=== PATIENT | female | born 1975 | race Caucasian/White ===

== ENCOUNTER 2019-07-14 06:45 | Outpatient (CLI) | payer BC, SELFPAY ==
--- NOTE | ~2019-07-14 | MR_ITS ---
EXAMINATION: MR brain/brain stem wo/w con EXAM DATE: 07/14/2019 09:33 INDICATION: Myelopathy. Neurological deficit. Hyperreflexia. Bilateral upper extremity weakness. TECHNIQUE: Magnetic resonance imaging (MRI) of the brain/brain stem obtained without contrast. Sagit connor T1, axial diffusion, gradient echo (T2*), T1, T2, FLAIR sequences obtained. Patient was then inj ected with 10 cc intravenous Multihance contrast. Axial and coronal postcontrast T1 weighted sequence s obtained. There is no prior study for comparison. FINDINGS: There are no areas of restricted diffusion to suggest acute infarction. There is no acute hemorrhage seen on the T2*, a hemosiderin sensitive sequence. No intraparenchymal brain mass. The ve ntricles are normal in size. There are no extra-axial collections. Flow voids are seen in the cereb ral arteries on the T2-weighted sequences consistent with their expected patency. The orbits are unr emarkable. Soft tissue is unremarkable. There are no areas of abnormal enhancement on the postcont rast images. IMPRESSION: 1. Normal brain MRI examination. Reviewed, dictated and finalized at location A. Y LEVEL SALES REPRESENTATIVE
--- NOTE | ~2019-07-14 | MR_ITS ---
EXAMINATION: MR cervical spine wo/w con EXAM DATE: 07/14/2019 09:33 INDICATION: Myelopathy, neurological deficit, weakness. Hyperreflexia. TECHNIQUE: Multi-sequential, multiplanar MR images of the cervical spine were obtained without contra st. Axial T2, axial T2 MERGE sequence. Sagittal T1, T2, T2 fat saturation images also obtained. Axi al T1 weighted sequence. Patient was then injected with 10 mL Multihance intravenous contrast and re imaged. Postcontrast axial and sagittal T1-weighted fat saturation sequences were obtained. There i s no prior study for comparison. FINDINGS: The vertebral bodies are aligned in the AP dimension. Vertebral body and disc heights are well-maintained. There are no suspicious marrow signal abnormalities. The spinal cord signal intensit y and intrinsic morphology is normal. Cervicomedullary junction is normal in appearance. There are no areas of abnormal enhancement on the post contrast images. Level by level evaluation: C2-C3: Disc does not extend beyond the endplate margin. Uncovertebral joint arthropathy: None. Facet joint arthropathy: Minimal bilateral. Neural foraminal stenosis: No stenosis. Central canal stenosis: No stenosis. C3-C4: Disc does not extend beyond the endplate margin. Uncovertebral joint arthropathy: None. Facet joint arthropathy: Minimal bilateral. Neural foraminal stenosis: No stenosis. Central canal stenosis: No stenosis. C4-C5: Disc does not extend beyond the endplate margin. Uncovertebral joint arthropathy: None. Facet joint arthropathy: Minimal bilateral. Neural foraminal stenosis: No stenosis. Central canal stenosis: No stenosis. C5-C6: Disc does not extend beyond the endplate margin. Uncovertebral joint arthropathy: None. Facet joint arthropathy: Minimal bilateral. Neural foraminal stenosis: No stenosis. Central canal stenosis: No stenosis. C6-C7: Disc does not extend beyond the endplate margin. Uncovertebral joint arthropathy: None. Facet joint arthropathy: None. Neural foraminal stenosis: No stenosis. Central canal stenosis: No stenosis. C7-T1: Disc does not extend beyond the endplate margin. Uncovertebral joint arthropathy: None. Facet joint arthropathy: Mild right, minimal left. Neural foraminal stenosis: No stenosis. Central canal stenosis: No stenosis. IMPRESSION: 1. Normal cervical spinal cord signal. 2. Minimal facet arthropathy. Reviewed, dictated and finalized at location A. CTOR OPERATING ROOM
--- NOTE | ~2019-07-14 | MR_ITS ---
EXAMINATION: MR thoracic spine wo/w con EXAM DATE: 07/14/2019 09:33 INDICATION: Myelopathy. Bilateral upper extremity weakness. Neurological deficit. Hyperreflexia. TECHNIQUE: Multi-sequential, multiplanar MR images of the thoracic spine were obtained without contra st. Sagittal T1, T2, T2 fat saturation, axial T2 weighted images reviewed. Axial T1 weighted sequenc e. Patient was then injected 10 mL Multihance intravenous contrast and reimaged. Postcontrast axial and sagittal T1-weighted fat saturation sequences were obtained. FINDINGS: The spinal cord signal intensity and intrinsic morphology is normal. The vertebral bodies a re aligned in the AP dimension. Vertebral body and disc heights are well-maintained. There are no katiana picious marrow signal abnormalities. Thoracic neural foramen and spinal canal widely patent. Paraspin al soft tissue is unremarkable. There are no areas of abnormal enhancement on the post contrast image s. IMPRESSION: Unremarkable MR thoracic spine exam. Reviewed, dictated and finalized at location A. IONARY EQUIPMENT MECHANIC
[2019-07-14 08:02] LABS: Blood Urea Nitrogen 34 mg/dL (8-26); Estimated Glomerular Filt Rate > 60
== END 2019-07-14 06:46 | disposition home or self-care (01) ==
PROVIDERS: PCP Family Medicine
DX: G95.9 Disease of spinal cord, unspecified (principal)
CPT/HCPCS: 70553; 72156; 72157; A9577

== ENCOUNTER 2019-10-05 10:22 | Outpatient (CLI) | payer BC, SELFPAY ==
--- NOTE | ~2019-10-05 | XR_ITS ---
EXAMINATION: XR hip RT min 3V w AP pelvis INDICATION: Right hip pain TECHNIQUE: AP view the pelvis and three views of the right hip are obtained. COMPARISON: 06/04/2019 FINDINGS: Mild right hip osteoarthritis is unchanged. Bone alignment is normal. There is no fracture. Phleboliths are noted in the pelvis. IMPRESSION: 1. No acute osseous abnormality. Reviewed, dictated and finalized at location A.
== END 2019-10-05 10:23 | disposition home or self-care (01) ==
LOC: ANHIMG 10:29
PROVIDERS: PCP Family Medicine; Visit Provider Nurse Practitioner Family
DX: M25.551 Pain in right hip (principal); M25.451 Effusion, right hip
CPT/HCPCS: 73502

== ENCOUNTER 2020-06-07 15:22 | Outpatient (CLI) | payer BC, SELFPAY ==
--- NOTE | ~2020-06-07 | US_ITS ---
EXAMINATION: US soft tissue abdomen DATE: 06/07/2020 16:08 INDICATION: Right lower quadrant abdominal pain TECHNIQUE: Multiple grayscale and Doppler ultrasound images of the abdomen were obtained. COMPARISON: None FINDINGS: Shadowing gas and stool in the cecum. There are multiple peristalsing loops of nondilated small bowel the region of the cecum. A definitive blind ending appendix was unable to be identified. The patient was exquisitely tender to palpation with a probe positioned over the tip of the cecum. IMPRESSION: 1. Appendix and it would be definitively identified however patient was extremely tender in the regio n of the tip of the cecum which does remain concerning for acute appendicitis. Could consider contras t-enhanced CT for more definitive determination. Dr. Barbosa discussed these findings with Viviana Maki at 4:05 PM. Reviewed, dictated and finalized at location A. CONDENSER IMPRESSION: 1. Appendix and it would be definitively identified however patient was extreme ly tender in the region of the tip of the cecum which does remain concerning fo r acute appendicitis. Could consider contrast-enhanced CT for more definitive d etermination. Dr. Barbosa discussed these findings with Viviana SHIN at 4:05 PM.
--- NOTE | ~2020-06-07 | XR_ITS ---
EXAMINATION: XR hip RT min 3V w AP pelvis DATE: 06/07/2020 16:16 INDICATION: Right hip pain. TECHNIQUE: An anteroposterior view of the pelvis and 3 views of right hip were obtained. COMPARISON: Pelvis and right hip radiographs 10/05/2019 FINDINGS: Bone alignment is normal. No fracture. The joint spaces are normal. A vascular stent overli es right pelvis. IMPRESSION: 1. No etiology for right hip pain. Reviewed, dictated and finalized at location A. IATIVE CARE NURSE
[2020-06-07 16:44] LABS: Basophils Percent Auto 0.5 % (0.2-1.2); Eosinophils Absolute Auto 0.1 K/mm3 (0-0.3); Eosinophils Percent Auto 0.9 % (0-4.4); Hematocrit 40.8 % (37.0-47.0); Hemoglobin 13.8 g/dL (12.0-15.0); Immature Granulocyte Absolute 0.02 K/mm3 (0.00-0.031); Immature Granulocyte Percent A 0.3 % (0-0.5); Lymphocytes Absolute Auto 1.32 K/mm3 (0.9-3.2); Lymphocytes Percent Auto 22.5 % (18.3-44.2); Mean Corpuscular HGB Conc 33.8 g/dl (32-36); Mean Corpuscular Hemoglobin 29.9 pg (26-34); Mean Corpuscular Volume 88.5 fl (80-100); Mean Platelet Volume 10.3 fl (7.4-10.4); Monocytes Absolute Auto 0.4 K/mm3 (0.1-0.6); Monocytes Percent Auto 6.1 % (2.6-8.5); Neutrophils Absolute Auto 4.1 K/mm3 (1.3-6.7); Neutrophils Percent Auto 69.7 % (45.5-73.1); Platelet Count Result 225 k/mm3 (150-375); Red Blood Count 4.61 M/mm3 (4.2-5.4); Red Cell Distribution Width 12.3 % (11.5-14.5); White Blood Count 5.9 K/mm3 (4.5-10.0)
[2020-06-07 16:57] LABS: Alanine Aminotransferase 29 U/L (4-35); Albumin Level 4.4 g/dL (3.5-5.1); Alkaline Phosphatase 48 U/L (38-126); Anion Gap 7 mmol/L (8-16); Aspartate Amino Transferase 34 U/L (14-36); Bilirubin,Total 0.7 mg/dL (0.2-1.3); Blood Urea Nitrogen 20 mg/dL (7-17); Calcium 9.2 mg/dL (8.4-10.2); Carbon Dioxide 26 mmol/L (22-30); Chloride 103 mmol/L (98-107); Estimated Glomerular Filt Rate > 60; Glucose 89 mg/dL (65-105); Potassium 3.5 mmol/L (3.4-5.0); Sodium 136 mmol/L (137-145)
== END 2020-06-07 15:23 | disposition home or self-care (01) ==
PROVIDERS: PCP Family Medicine; Visit Provider Physician Assistant Medical
DX: R10.31 Right lower quadrant pain (principal); M25.551 Pain in right hip
CPT/HCPCS: 36415; 73502; 76705; 80053; 85025

== ENCOUNTER 2020-06-08 11:03 | Emergency (ER) | payer BC, SELFPAY ==
--- NOTE | ~2020-06-08 | US_ITS ---
EXAMINATION: US pelvic complete w TV EXAM DATE: 06/08/2020 13:39 INDICATION: Right lower quadrant pain, concern for ovarian torsion. TECHNIQUE: Pelvic transabdominal and transvaginal sonogram was performed. There are multiple graysca le and Doppler images available for interpretation. Comparison is made to prior examination from 2018. FINDINGS: The vaginal cuff is unremarkable. Small free pelvic fluid in the cul-de-sac. Right adnexa: The ovary measures 2.9 x 2.7 x 1.9 cm and is morphologically normal. Ovarian vascular f low confirmed. Left adnexa: The ovary is not identified. There is no adnexal mass. IMPRESSION: Sonographically normal right ovary. Reviewed, dictated and finalized at location B. NING AND DEVELOPMENT INTERN
--- NOTE | ~2020-06-08 | CT_ITS ---
EXAMINATION: CT abdomen pelvis w con DATE: 06/08/2020 12:50 INDICATION: Right lower quadrant abdominal pain. Nausea. TECHNIQUE: Computed tomography (CT) of the abdomen and pelvis was performed with 100 mL Omnipaque 350 intravenous contrast. Automated exposure control and iterative reconstruction technique were employe d. The dose-length product was 201.04 mGy-cm. COMPARISON: CT abdomen and pelvis 11/18/2018 FINDINGS: The visualized portions of the lung bases demonstrate mild atelectasis. No pleural effusion . The heart size is normal. No pericardial effusion. Pectus excavatum is noted. The liver is normal. There are changes of cholecystectomy. The pancreas, adrenal glands, and spleen are normal. There are cysts in the kidneys measuring up to 4 mm on the right. There is a stent in right common and external iliac veins. There are no dilated loops of bowel. The appendix is not visualized. There are no patho logically enlarged lymph nodes. There is trace pelvic ascites. There is an old healed fracture of lef t inferior pubic ramus. IMPRESSION: 1. No etiology for the patient's symptoms. Reviewed, dictated and finalized at location A. ROENTEROLOGY PROFESSOR
[2020-06-08 11:12] VITALS: BP 117/75; PULSE 90; RESP 16; TEMP 36.7; O2SAT 100
--- NOTE | 2020-06-08 11:18 | PC.NURSE ---
pt has had hyst. no preg test indicated
[2020-06-08 11:23] LABS: Basophils Percent Auto 0.3 % (0.2-1.2); Eosinophils Percent Auto 0.2 % (0-4.4); Hematocrit 38.4 % (37.0-47.0); Immature Granulocyte Absolute 0.03 K/mm3 (0.00-0.031); Immature Granulocyte Percent A 0.5 % (0-0.5); Lymphocytes Absolute Auto 1.15 K/mm3 (0.9-3.2); Lymphocytes Percent Auto 18.5 % (18.3-44.2); Mean Corpuscular HGB Conc 33.9 g/dl (32-36); Mean Corpuscular Hemoglobin 29.6 pg (26-34); Mean Corpuscular Volume 87.5 fl (80-100); Mean Platelet Volume 10.3 fl (7.4-10.4); Monocytes Absolute Auto 0.4 K/mm3 (0.1-0.6); Monocytes Percent Auto 6.8 % (2.6-8.5); Neutrophils Absolute Auto 4.6 K/mm3 (1.3-6.7); Neutrophils Percent Auto 73.7 % (45.5-73.1); Platelet Count Result 225 k/mm3 (150-375); Red Blood Count 4.39 M/mm3 (4.2-5.4); Red Cell Distribution Width 12.5 % (11.5-14.5); White Blood Count 6.2 K/mm3 (4.5-10.0)
[2020-06-08 11:35] LABS: Alanine Aminotransferase 36 U/L (4-35); Albumin Level 4.5 g/dL (3.5-5.1); Alkaline Phosphatase 54 U/L (38-126); Anion Gap 6 mmol/L (8-16); Aspartate Amino Transferase 40 U/L (14-36); Bilirubin,Total 0.7 mg/dL (0.2-1.3); Blood Urea Nitrogen 27 mg/dL (7-17); Calcium 9.1 mg/dL (8.4-10.2); Carbon Dioxide 24 mmol/L (22-30); Chloride 106 mmol/L (98-107); Estimated CRCL calculation 68 ml/min; Estimated Glomerular Filt Rate > 60; Glucose 99 mg/dL (65-105); Lipase 74 U/L (23-300); Potassium 3.7 mmol/L (3.4-5.0); Sodium 136 mmol/L (137-145)
--- NOTE | 2020-06-08 12:14 | ED.GENADULT ---
HPI - General Adult General Chief complaint: Abdominal Pain Stated complaint: RLQ and flank pain Time Seen by Provider: 06/08/20 12:08 Source: RN notes reviewed History of Present Illness HPI narrative: Patient presents to emergency department from home for abdominal pain. Patient states she been having pain in the right lower quadrant that radiates into the right flank for the past 3 days described as sharp and stabbing. Associated with nausea. Patient denies any fevers or chills chest pain shortness of breath vomiting diarrhea or any other symptoms. States she took no pain medication today for the symptoms. Denies any previous history of kidney stones Related Data Home Medications Medication Instructions Recorded Confirmed denosumab 60 mg/mL subcutaneous 60 mg SUB-Q [id number] 05/12/19 03/04/20 syringe Allergies Allergy/AdvReac Type Severity Reaction Status Date / Time lidocaine Allergy Unknown Nausea and Verified 06/08/20 11:16 Vomiting codeine AdvReac Unknown NAUSEA/VOMI Verified 06/08/20 11:16 TING Review of Systems Review of Systems: Narrative: Gen.: Denies fevers or chills ENT: Denies congestion Respiratory: Denies shortness of breath or cough CV: Denies chest pain or palpitations GI: See HPI denies burning, urgency, frequency or hematuria Musculoskeletal: Denies back pain or muscle pain Neuro: Denies numbness, tingling, weakness or focal weakness Skin: Denies rash Except as documented, all other systems reviewed and negative COUNTS INCLUDE 234 BEDS AT THE [facility] Past Medical History Medical History (Updated 06/08/20 @ 14:10 by Ravi Dean DO) Malignant neoplasm of unspecified site of right female breast Seronegative rheumatoid arthritis of multiple sites Weight loss Family History Family History Father Hypertension Other Family history of malignant neoplasm Social History Social History Smoking status: Never smoker Second hand tobacco smoke exposure: No Alcohol intake: current Gender identity (if verbalized by the patient): Female Exam Narrative: Exam Narrative: APPEARANCE: No acute distress, nontoxic, resting in bed HEENT: Normocephalic, atraumatic, OMM RESPIRATORY: No respiratory distress, clear to auscultation bilaterally with no rhonchi wheezing or rales CARDIOVASCULAR: RRR s murmur ABDOMINAL: Soft, nondistended, tender palpation right lower quadrant no tenderness in right upper quadrant, left upper quadrant left lower quadrant no rebound or guarding MUSCULOSKELETAl: Moves all extremities. No clubbing, cyanosis or edema. NEURO: Awake and alert. Following commands, speech normal, no focal deficits SKIN:: Warm, dry. Normal Color PSYCHIATRIC: Normal affect/mood Course Course Emergency Course: Patient states that they are feeling much better at this time. States abdominal pain has improved. Repeat abdominal exam shows the patient's abdomen to be soft and nontender. Discussed with patient results of workup and diagnosis. Discussed need for follow-up with primary care physician, reasons to return to the emergency department in proper use of medication. Patient understands and agrees to current treatment plan Vital Signs Vital signs: Vital Signs Temperature 98.1 F 06/08/20 11:12 Pulse Rate 90 06/08/20 11:12 Respiratory Rate 16 06/08/20 11:12 Blood Pressure 117/75 06/08/20 11:12 Pulse Oximetry 100 06/08/20 11:12 Temperature 98.1 F 06/08/20 11:12 Pulse Rate 90 06/08/20 11:12 Respiratory Rate 16 06/08/20 11:12 Blood Pressure 117/75 06/08/20 11:12 Pulse Oximetry 100 06/08/20 11:12 Medical Decision Making MDM Narrative Medical decision making narrative: Patient's abdomen is soft without significant pain or signs of surgical abdomen on serial exams. Lab and x-ray evaluations are reviewed and patient is felt to be a reasonable candidate for outpatient manag
[2020-06-08 12:21] LABS: Add Urine Microscopic? YES; Appearance Urine Clear (Clear); Bilirubin Urine Negative (Negative); Blood Urine Negative (Negative); Color Urine Yellow (Yellow); Glucose Urine UA Negative (Negative); Ketones Urine 1+ mg/dL (Negative); Leukocyte Esterase Ur Negative LEU/UL (Negative); Mucus Urine Rare /lpf; Nitrate Urine Negative (Negative); Protein Urine Negative (Negative); RBC Urine 0-2 /hpf (0-2); Specific Grav Ur 1.025 (1.001-1.035); Squamous Epithelial Cell Urine Few /hpf (Few); Urobilinogen Urine Negative mg/dL (<2.0); WBC Urine 0-3 /hpf
[2020-06-08] MEDS: KETOROLAC 30 MG/ML VIAL (*BKC) IV PUSH (12:33)
[2020-06-08] MEDS: SODIUM CHLORIDE 0.9% IV 1,000 ML 999 ML IV CONT (12:33)
[2020-06-08] MEDS: ONDANSETRON INJ 4 MG/2 ML VIAL IV PUSH (12:33)
[2020-06-08 14:36] VITALS: BP 146/84; PULSE 86; RESP 16; O2SAT 98
== END 2020-06-08 14:37 | disposition home or self-care (01) ==
PROVIDERS: Emergency Provider Emergency Medicine; PCP Family Medicine
DX: R10.31 Right lower quadrant pain (principal); M06.09 Rheumatoid arthritis without rheumatoid factor, multiple sites; Z85.3 Personal history of malignant neoplasm of breast
CPT/HCPCS: 36415; 74177; 76830; 76856; 80053; 81001; 83690; 85025; 96361; 96374; 96375; 99284; J1885; J2405; J7030; Q9967

== ENCOUNTER 2020-07-18 12:43 | Outpatient (CLI) | payer BC, SELFPAY ==
--- NOTE | ~2020-07-18 | XR_ITS ---
EXAMINATION: XR lg joint inject/asp w image DATE: 07/18/2020 13:23 INDICATION: Right hip pain TECHNIQUE: A time-out was performed to verify the patient's name, date of , and procedure to b e performed. The procedure including the risks, benefits, and alternatives was discussed with the pat ient. Risks discussed included bleeding and infection. The patient understood the risks and agreed to proceed. The skin overlying the right hip joint was prepped and draped in usual sterile fashion. A nesthetic was administered with 1% lidocaine subcutaneously. A 22 G needle was advanced under fluoro scopic guidance into the joint. Injection of 0.8 mL of Omnipaque 240 confirmed intra-articular posit ion of the needle. Subsequently, injectate consisting of 7 mm of a 5:1 mixture of 1% lidocaine, 10 m g/mL Kenalog for a total dose of 20 mg Kenalog was instilled. Washout of contrast was seen confirming intra-articular administration. The needle was removed and the entry site was cleaned and dressed. There were no immediate complications. Fluoroscopy exposure time was 0.1 minutes. The total number of images was 2. FINDINGS: Real-time fluoroscopy demonstrates the needle in the right hip joint. Patient's pain prior to procedure:6/10. Patient's pain following the procedure: 3/10. IMPRESSION: 1. Right hip joint injection of local anesthetic and steroid with decrease in the patient's presentin g pain. Reviewed, dictated and finalized at location A. ING PLANT SUPERVISOR IMPRESSION: 1. Right hip joint injection of local anesthetic and steroid with decrease in t he patient's presenting pain.
== END 2020-07-18 12:44 | disposition home or self-care (01) ==
LOC: ANHIMG 12:44
PROVIDERS: PCP Family Medicine; Visit Provider Orthopaedic Surgery
DX: M16.11 Unilateral primary osteoarthritis, right hip (principal)
CPT/HCPCS: 20610; 77002; J3301; Q9966

== ENCOUNTER → 2021-07-08 00:04 | Outpatient (CLI) | payer BC, MEDICARE, SELFPAY ==
[2021-07-08 12:36] LABS: SARS-CoV-2 RNA PCR Negative
== END ==
PROVIDERS: PCP Family Medicine; Visit Provider Plastic Surgery
DX: Z01.812 Encounter for preprocedural laboratory examination (principal); Z20.822 Contact with and (suspected) exposure to COVID-19
CPT/HCPCS: C9803; U0003; U0005

== ENCOUNTER 2021-07-12 02:38 | Day surgery (SDC) | payer BC, MEDICARE, SELFPAY ==
[2021-07-03 15:27] VITALS: BMI 20.7
--- NOTE | 2021-07-03 15:39 | PC.NURSE ---
Report to the Outpatient Waiting Room, entrance under the green pavilion located off [facility], at time 0745 on date 07/12/21. OR Time: 0945. - You will be asked a series of questions to screen for COVID 19 for your protection. - A mask is required within the hospital. - No visitors are allowed at this time. Preoperative COVID Testing Requirements: COVID TEST 07/08 AT 0920 No COVID Test needed if: (proof is required; if not received patient will have Rapid Test prior to entry) - Patient has received COVID Vaccine at least 14 days prior to procedure date or - Patient has positive COVID test result within last 90 days of surgery date. COVID Test needed if above criteria is not met If not COVID vaccinated a COVID test must be conducted within 72 hours of surgery and patient is asked to isolate self from time of testing until procedure. You will go to the [facility] for your COVID testing. The [facility] is located at the corner of [address] [facility]. You will only be called if COVID results are positive and your surgeon may reschedule your elective surgery date. Patients may have clear liquids (water, carbonated beverages, clear teas, apple juice) until 3 hours prior to surgery with a maximum of 20 ounces. - No food from midnight until time of surgery Take the following medications with a SIP of water the morning of surgery: NONE Medications to discontinue per physician: PLAQUENIL, METHOTREXATE, FOLIC ACID Date to take last dose: 07/07/21 (PER DR. CHURCH) Please no make-up, nail czech, hairspray, perfume, deodorant, or body powder the day of surgery. No jewelry (including any body piercings) or valuables the day of surgery, leave them at home. Please take a shower or bath the night before, or the morning of, surgery with an antibacterial soap. Wear comfortable, loose fitting clothing. - Jewelry must be removed prior to entering the operating room. Rings and piercings that are not removed may be cut off. - The hospital will not accept responsibility for valuables. - Please leave all valuables, including medications, at home the day of surgery. If you are going home after surgery, a licensed delivery driver/supervisor must drive you home. - NO public transportation without another adult. - We recommend that an adult stay with you for 24 hours following discharge. - We also recommend that you do not drive, make important decision, drink alcoholic beverages, or take any drugs that were not prescribed by your health care provider for at least 24 hours after your discharge time. Follow any additional instructions given to you from your surgeon. Telephone instructions given to EMMA FARAH and asked if any additional questions and then verbalized understanding. Patient advised to call surgeon office or pre surgery nurse liaison [phone] if any additional questions.
--- NOTE | 2021-07-12 07:12 | WPDHPUPDATE1 ---
History and Physical Update Update Date/Time: 07/12/21 07:12 History and Physical has been reviewed, including an updated exam of the patient. There are NO changes in the patient's condition. Risks, benefits, and alternatives have been discussed and questions answered. Patient agrees to proceed with procedure.
[2021-07-12] MEDS: LACTATED RINGERS 1,000 ML 30 ML IV CONT (08:00)
--- NOTE | 2021-07-12 08:18 | P.PNAN_ITS ---
Anes - Initial Pre Proc Eval Procedure: Operation Date: 07/12/21 09:00 Proposed Procedures p Right Carpal Tunnel Release, Right Ulnar Neuroplasty at Elbow - Ravi Bella MD Date/Time: 07/12/21 08:18 Surgeon: Ravi Bella MD Pre Op Diagnosis: right carpal and cubital tunnel syndrome Patient Data Age: 46 Gender: F Height: 1.59 m Weight: 52.16 kg Allergies Allergy/AdvReac Type Severity Reaction Status Date / Time codeine AdvReac Unknown NAUSEA/VOMI Verified 07/03/21 15:25 TING Home Medications Medication Instructions Recorded Confirmed Type denosumab 60 mg/mL subcutaneous 60 mg SUB-Q [id number] 05/12/19 07/03/21 History syringe folic acid 1 mg tablet 1 mg PO DAILY #90 tablet 11/17/19 07/03/21 Rx hydroxychloroquine 200 mg tablet 200 mg PO BID #60 tablet 11/17/19 07/03/21 Rx methotrexate sodium 2.5 mg tablet 25 mg PO WEEKLY #40 tablet 11/17/19 07/03/21 Rx cyclobenzaprine 5 mg tablet 5 mg PO QHS PRN #20 tablet 05/02/21 07/03/21 Rx Patient hx anesthesia problems: none Family hx anesthesia problems: none Results Review: All pre-operative results and documents have been reviewed as part of the pre-operative evaluation. [facility] Past Medical History Medical History (Updated 07/12/21 @ 08:20 by Marcel Roach MD) Malignant neoplasm of unspecified site of right female breast Seronegative rheumatoid arthritis of multiple sites SLE (systemic lupus erythematosus related syndrome) Weight loss Surgical History Surgical History H/O breast surgery H/O knee surgery History of cholecystectomy Family History Family History Father Hypertension Other Family history of malignant neoplasm Social History Social History Smoking status: Never smoker Second hand tobacco smoke exposure: No Alcohol intake: current Alcohol use details: VERY RARE Substance use: never Substance use type: does not use Living arrangements: with family Gender identity (if verbalized by the patient): Female Spiritual care concerns: No Anes - Eval Final PreProcedure Day of Procedure 07/12/21 08:18 Patient weight: normal Heart: regular rate and rhythm Lungs: clear to auscultation and normal air movement Airway: Mallampati scale class II Neurological: alert and oriented Last oral intake: >/= 8 hours ASA classification: III Emergent: no Anesthetic plan: proceed Anesthesia type and monitoring: general GIVS Results Review: All pre-operative results and documents have been reviewed as part of the pre-operative evaluation. Informed Consent: The patient's anesthetic plan and its attendant risks and benefits were discussed with the patient/family/POA. Questions were solicited and answers provided to the satisfaction of the patient/family/POA.
[2021-07-12 08:45] VITALS: BP 115/80; PULSE 78; RESP 16; TEMP 36.4; O2SAT 100
[2021-07-12] MEDS: LIDO 1%/EPINEPHRINE/PF 1:200,000 30 ML VIAL XX (10:02)
[2021-07-12] MEDS: BACITRACIN OINTMENT 15 GM TUBE 1 APPLIC TOPICAL (10:16)
[2021-07-12 10:25] VITALS: BP 98/61; PULSE 73; RESP 14; O2SAT 95
[2021-07-12 11:00] VITALS: BP 111/76
[2021-07-12 11:10] VITALS: BP 113/76; PULSE 75; RESP 16
--- NOTE | 2021-07-12 11:43 | W.PM.PROC2 ---
Procedure Note - Detailed Date of Procedure 07/12/21 Pre-op Diagnosis right carpal and cubital tunnel syndrome Post-op Diagnosis same Procedure Performed Right open carpal tunnel release. Right ulnar neuroplasty with subcutaneous anterior transposition of the ulnar nerve. Surgeon Ravi Bella MD [facility] Anesthesia MAC Description of Procedure The right carpal tunnel on the right ulnar nerve at the elbow or were marked on the patient with her cooperation. She is in the holding area. She was taken to the operating room where she was placed supine on the operating table then. The time-out was held and confirmed. She was given IV sedation and the right upper extremity was prepped and draped in usual fashion. The surgical sites were marked for incisions and locally infiltrated with 1% lidocaine with epinephrine. The extremity was exsanguinated with a Grupo wrap and tourniquet inflated to 250 mmHg. The surgery was begun and a hand with a incision in the palm as marked and blunt dissection through the subcutaneous tissue to the palmar aponeurosis. This and the transverse retinaculum were incised with a 15 blade. Under 3 point retraction the retinaculum was incised proximally and distally for complete release of the carpal canal. No unusual anatomy was noted. The skin was closed with interrupted 5 0 nylon suture. Attention was turned to the elbow which was flexed and supported on folded towels. Incision was made at that site and dissection carried through subcutaneous tissue to the medial epicondyle. We noted the nerve to be riding up on the medial epicondyle and anterior to its normal track. The medial intermuscular septum was incised and the fascial tissue over the nerve was divided distally passing Cruz ligament into the muscle fascia. A the nerve did not return to its normal position. I wrote upon the medial epicondyle with passive flexion extension of the elbow. We elected to further transpose the medial to the epicondyle and retained in that position. The nerve was freed throughout this 5 cm area. Vascular tissue was left attached to that. The skin flap was elevated further providing a pocket to receive the nerve. The small fascial flap was taken off the medial epicondyle fixed to the superficial fascia of the skin flap. This was done with 3-0 Monocryl sutures. Additional bleeding points were sought and cauterized. The skin was closed with interrupted and running intradermal 3-0 Monocryl sutures. The tourniquet was released and the usual bandages were applied to both surgical sites. Patient is discharged home with instructions in wound care and follow-up and has a prescription for hydrocodone 5/325 number 8 full, and cephalexin 500 mg 1 p.o. t.i.d. 15. Estimated Blood Loss -5.0 Drains No Packing No Pathology none sent Complications No immediate complications Condition stable Disposition same day
== END 2021-07-12 11:35 | disposition home or self-care (01) ==
PROVIDERS: PCP Family Medicine; Visit Provider Plastic Surgery
PROC: (CPT 64721; principal; 2021-07-12 09:00)
DX: G56.01 Carpal tunnel syndrome, right upper limb (principal); G56.21 Lesion of ulnar nerve, right upper limb; M32.9 Systemic lupus erythematosus, unspecified; M06.09 Rheumatoid arthritis without rheumatoid factor, multiple sites; Z85.3 Personal history of malignant neoplasm of breast
CPT/HCPCS: 64721; 64718; A9270; J1100; J2250; J2405; J2704; J3010; J7120

== ENCOUNTER → 2021-09-11 13:44 | Outpatient (REF) | payer BC, MEDICARE, SELFPAY | LOC: ANHLAB 13:44 | PROVIDERS: PCP Family Medicine; Visit Provider Nurse Practitioner | DX: L72.9 Follicular cyst of the skin and subcutaneous tissue, unspecified (principal) | CPT/HCPCS: 88304 ==

== ENCOUNTER → 2021-10-09 10:49 | Outpatient (CLI) | payer BC, MEDICARE, SELFPAY ==
--- NOTE | ~2021-10-09 | MR_ITS ---
EXAMINATION: MR pelvis wo/w con DATE: 10/09/2021 11:56 INDICATION: Urinary incontinence. Sensation of pressure and internal slippage. TECHNIQUE: Magnetic resonance imaging (MRI) of the pelvis was performed without and with 10 mL MultiH ance intravenous contrast. COMPARISON: CT abdomen and pelvis 06/08/2020 FINDINGS: There are no dilated loops of bowel. There are changes of hysterectomy. The ovaries are normal. There is physiologic fluid in the pelvis. There is pelvic floor dysfunction including vaginal prolapse and rectal descent. IMPRESSION: 1. Pelvic floor dysfunction including vaginal prolapse and rectal descent. Note that dynamic pelvic floor imaging was not performed. Reviewed, dictated and finalized at location B.
[2021-10-09 11:14] LABS: Estimated Glomerular Filt Rate > 60
== END ==
PROVIDERS: PCP Family Medicine; Visit Provider Nurse Practitioner Family
DX: N39.3 Stress incontinence (female) (male) (principal); R10.2 Pelvic and perineal pain
CPT/HCPCS: 72197; A9577

== ENCOUNTER 2022-01-15 12:22 | Emergency (ER) | payer BC, MEDICARE, SELFPAY ==
--- NOTE | ~2022-01-15 | CT_ITS ---
EXAMINATION: CT abdomen pelvis wo con DATE: 01/15/2022 14:19 INDICATION: Fever and flank pain TECHNIQUE: Computed tomography (CT) of the abdomen and pelvis was performed without intravenous contr ast. The dose-length product (DLP) was 183.66 mGy-cm. Automated exposure control and iterative recons truction technique were employed. COMPARISON: 06/08/2020 FINDINGS: Minimal dependent atelectasis is present in the lung bases. The heart size is normal. The g allbladder is surgically absent. Within the limitations of noncontrast examination, the liver, spleen , pancreas, and adrenal glands are normal. The kidneys are unremarkable. No pathologically enlarged a bdominal or pelvic lymph nodes are identified. There is a small volume of free fluid in the pelvis. T here is no free intraperitoneal gas or evidence of bowel obstruction. There is a stent in the right c ommon iliac and external iliac veins. IMPRESSION: 1. No CT correlate for the patient's symptoms. Trace volume of pelvic ascites, likely postoperative. Reviewed, dictated and finalized at location B.
[2022-01-15 12:51] VITALS: BP 140/81; PULSE 95; RESP 16; TEMP 37.7; O2SAT 100
[2022-01-15 13:23] VITALS: BP 139/91; O2SAT 99
[2022-01-15 13:24] VITALS: O2SAT 100
[2022-01-15 13:30] VITALS: O2SAT 100
--- NOTE | 2022-01-15 13:31 | ED.FEVER ---
HPI - Fever General Chief Complaint: Fever Stated Complaint: back pain, fever, frequent urination Time Seen by Provider: 01/15/22 13:11 Source: patient Mode of arrival: ambulatory Limitations: no limitations History of Present Illness HPI Narrative: Patient is a 46-year-old female who presents the ED with report of urinary symptoms and fever. Patient reports she had a cystocele/rectocele/bladder sling surgery performed on December 27 at [facility] under Dr. Anuj Acuña. She had a urinary catheter placed post-op until 01/01. Patient reports she had been doing well until around this weekend when she developed urinary frequency, dysuria at the end of micturition, lower abdominal pain, lower back pain, and fevers. She reports fever up to 101.8 ?F at home. She notified her surgeon of her symptoms yesterday and was started on ciprofloxacin 500 mg BID. She has had 3 doses of this so far, but did not feel any better, so she decided to come here. No cough or cold symptoms. Nausea, no vomiting. No hematuria. Patient took Tylenol prior to arrival. Related Data Home Medications Medication Instructions Recorded Confirmed denosumab 60 mg/mL subcutaneous 60 mg subcut [id number] 05/12/19 09/26/21 syringe (Prolia) Allergies Allergy/AdvReac Type Severity Reaction Status Date / Time codeine AdvReac Unknown NAUSEA/VOMI Verified 01/15/22 13:30 TING Review of Systems Review of Systems: CONSTITUTIONAL: Reports fever. ENT: Denies rhinorrhea, congestion, sore throat. CARDIOVASCULAR: Denies chest pain. RESPIRATORY: Denies cough or dyspnea. GASTROINTESTINAL: Reports lower abdominal pain, nausea. Denies vomiting. GENITOURINARY: Reports urinary frequency, dysuria. Denies hematuria. MUSCULOSKELETAL: Reports lower back pain. All systems reviewed & are unremarkable except as noted in HPI and below PMFSH Past Medical History Medical History (Updated 01/15/22 @ 15:49 by Mackenzie Hendrickson PA-C) Adult BMI 19-24 kg/sq m History of cystocele Malignant neoplasm of unspecified site of right female breast Seronegative rheumatoid arthritis of multiple sites SLE (systemic lupus erythematosus related syndrome) Weight loss Surgical History Surgical History (Updated 01/15/22 @ 13:36 by Mackenzie Hendrickson PA-C) H/O breast surgery H/O knee surgery History of cholecystectomy History of repair of rectocele Family History Family History Father Hypertension Other Family history of malignant neoplasm Social History Social History Second hand tobacco smoke exposure: No Alcohol intake: current Alcohol use details: VERY RARE Substance use: never Substance use type: does not use Gender identity (if verbalized by the patient): Female Sexual Orientation (if Verbalized by the Patient): Straight or Heterosexual Spiritual care concerns: No Exam Narrative: GENERAL: Well appearing, thin, non-toxic, in no acute distress. HEAD: Normocephalic, atraumatic. NECK: Supple. No adenopathy, no masses. RESPIRATORY: Airway patent, respirations nonlabored. Clear to auscultation bilaterally, no rales, rhonchi, wheezing. CARDIOVASCULAR: Regular rate and rhythm without murmurs, rubs, or gallops. Peripheral pulses 2+ and equal bilaterally. ABDOMINAL: Soft, mild tenderness palpation over suprapubic region, right lower quadrant. Nondistended, no hepatosplenomegaly. Normoactive BS. Bilateral CVA tenderness to percussion, left greater than right. MUSCULOSKELETAL: Moves all extremities. Strength/ROM intact without gross deformities. SKIN: Warm, dry, normal color. No rashes. NEURO: A&O X3. Speech clear. Cranial nerves II-XII grossly intact. Steady gait. No ataxic movements. PSYCHIATRIC: Appropriate mood and affect. Normal interaction. Course Vital Signs Vital signs: Vital Signs Temperature 99.8 F H 01/15/22 12:51 P
[2022-01-15 13:49] LABS: Basophils Percent Auto 0.2 % (0.2-1.2); Eosinophils Percent Auto 0.3 % (0-4.4); Hematocrit 37.3 % (37.0-47.0); Hemoglobin 12.7 g/dL (12.0-15.0); Immature Granulocyte Absolute 0.05 K/mm3 (0.00-0.031); Immature Granulocyte Percent A 0.6 % (0-0.5); Lymphocytes Absolute Auto 0.57 K/mm3 (0.9-3.2); Lymphocytes Percent Auto 6.3 % (18.3-44.2); Mean Corpuscular Hemoglobin 30.4 pg (26-34); Mean Corpuscular Volume 89.2 fl (80-100); Mean Platelet Volume 10.1 fl (7.4-10.4); Monocytes Absolute Auto 0.9 K/mm3 (0.1-0.6); Monocytes Percent Auto 9.9 % (2.6-8.5); Neutrophils Absolute Auto 7.5 K/mm3 (1.3-6.7); Neutrophils Percent Auto 82.7 % (45.5-73.1); Platelet Count Result 242 k/mm3 (150-375); Red Blood Count 4.18 M/mm3 (4.2-5.4); Red Cell Distribution Width 12.3 % (11.5-14.5)
[2022-01-15 13:49] LABS: Appearance Urine Slightly Cloudy (Clear); Bilirubin Urine Negative (Negative); Blood Urine 2+ (Negative); Color Urine Yellow (Yellow); Glucose Urine UA Negative (Negative); Ketones Urine 1+ mg/dL (Negative); Leukocyte Esterase Ur 1+ LEU/UL (Negative); Nitrate Urine Negative (Negative); Protein Urine 2+ mg/dL (Negative); Specific Grav Ur 1.015 (1.001-1.035); Urobilinogen Urine 0.2 mg/dL (<2.0); pH Urine 5.5 (5.0-9.0)
[2022-01-15 13:53] LABS: Bacteria Urine Trace /hpf; Mucus Urine Few /lpf; RBC Urine 21-50 /hpf (0-2); Squamous Epithelial Cell Urine Many /hpf (Few); WBC Urine >75 /hpf
[2022-01-15 13:54] LABS: Lactic Acid Reflex 0.9 mmol/L (0.7-2.0)
[2022-01-15 13:54] LABS: Add Urine Microscopic? YES
[2022-01-15 13:55] LABS: Alanine Aminotransferase 72 U/L (6-35); Albumin Level 3.9 g/dL (3.5-5.1); Alkaline Phosphatase 120 U/L (38-126); Anion Gap 10 mmol/L (8-16); Aspartate Amino Transferase 60 U/L (14-36); Bilirubin,Total 0.8 mg/dL (0.2-1.3); Blood Urea Nitrogen 14 mg/dL (7-17); Carbon Dioxide 23 mmol/L (22-30); Chloride 101 mmol/L (98-107); Estimated CRCL calculation 75 ml/min; Estimated Glomerular Filt Rate > 60; Glucose 117 mg/dL (65-110); Lipase 34 U/L (23-300); Potassium 3.2 mmol/L (3.4-5.0); Sodium 134 mmol/L (137-145)
[2022-01-15 14:36] LABS: SARS-CoV-2 RNA PCR Negative
--- NOTE | 2022-01-15 15:00 | PC.NURSE ---
was asked by RN to try and place IV. went to room, pt unwilling to let allow attempt. pt reluctant, told pt that i could not help, though informed pt I would try to have vascular access come and see her. call placed to Vascular access, repsonded that they were busy placing back to back PICC lines and most likely wouldn't be able to se pt.
== END 2022-01-15 16:28 | disposition home or self-care (01) ==
PROVIDERS: Physician Assistant; Emergency Provider Emergency Medicine; PCP Family Medicine
DX: N30.01 Acute cystitis with hematuria (principal); E87.6 Hypokalemia; R74.01 Elevation of levels of liver transaminase levels; Z20.822 Contact with and (suspected) exposure to COVID-19; Z85.3 Personal history of malignant neoplasm of breast
CPT/HCPCS: 36415; 74176; 80053; 81001; 83605; 83690; 85025; 87040; 87077; 87086; 87186; 99284; C9803; U0003; U0005

== ENCOUNTER 2025-02-18 09:46 | Outpatient (CLI) | payer BC, MEDICARE, SELFPAY ==
--- NOTE | ~2025-02-18 | MR_ITS ---
MR breast BI wo/w con INDICATION:49 year old female with history of bilateral breast cancer treated with bilateral mastectomy and reconstruction with implants. She presents for follow-up examination. Patient complaining of localized pain and swelling in the left breast. TECHNIQUE: MRI of the breasts perform using standard protocol pre-and post IV contrast with the following sequences: Axial T2 STIR, axial T1, axial vibrant T1 with fat suppression precontrast and multiphasic postcontrast. 10 cc MultiHance administered intravenously. COMPARISON: None. FINDINGS: Right breast: There is a single lumen retroglandular implant. There is no periimplant fluid collection or intracapsular no extracapsular rupture. No abnormal enhancing lesion seen. No evidence of signal abnormalities in the axillary or internal mammary node distributions. LEFT BREAST: There is a single lumen retroglandular implant. There is no periimplant fluid collection or intracapsular no extracapsular rupture. No abnormal enhancing lesion seen. No evidence of signal abnormalities in the axillary or internal mammary node distributions.] IMPRESSION: 1: Bilateral retroglandular implants are intact. 2. No MRI evidence of tumor recurrence in either breast. 3. The chest wall and axillary portion of the examination unremarkable. RECOMMENDATION: Follow-up MRI may be useful for supplementing mammographic evaluation as clinically indicated. BI-RADS Category 2: Benign finding(s). Reviewed, dictated and finalized at location B. IMPRESSION: 1: Bilateral retroglandular implants are intact. 2. No MRI evidence of tumor recurrence in either breast. 3. The chest wall and axillary portion of the examination unremarkable. RECOMMENDATION: Follow-up MRI may be useful for supplementing mammographic evaluation as clinic ally indicated. BI-RADS Category 2: Benign finding(s).
--- OUTSIDE RECORDS SUMMARY | 2025-02-18 10:35 | XMS_ITS | Clinical Summary ---
Author Organization [facility] Patient Conversation Media Address [address] [place] [address] Care Team Providers Care Aix System Administrator Name Role Phone Steven Altamirano MD Primary Care Provider [phone] Maria M Reed RN Unavailable [phone] Don Petersen MD Unavailable [phone] Anuj Acuña MD Unavailable [phone] Source Comments [facility],non-owned Affiliates and Associated Physician Practices is amultiple site organization consisting of ambulatory clinics and hospital sitesin [place], [place], [place] and [place]. This disclosure is being madepursuant to the Care Everywhere program and may not contain all information available regarding this patient. Last updated 18.[facility] Patient Conversation Media Allergies Active Allergy Reactions Criticality Noted Date Comments Adhesive Sensitivity Other 12/31/2024 Blister starts when tape is on too long Paper tape works best Codeine Nausea and/or Vomiting 12/31/2024 Medications * Be aware that medications may not be up to date on this document. Alwaysverify current medications with the patient. Nutritional Supplements (JUICE PLUS FIBRE PO) Take 1 Dose by mouth once daily Active methotrexate (RHEUMATREX) 2.5 MG tablet Take 10 tablets by mouth every 7 days May resume in 1 week 0 Active Additional Information Patient not taking.Reported on 01/18/2025 traMADol (Ultram) 50 MG tabletIndicatio ns:Bilateral ovarian cysts Take 1 (one) tablet by mouth every 6 hours as needed for Pain 12 tablet 5 Active Zoryve 0.15 % CREA 5 Active ondansetron, disintegrating, (Zofran ODT) 4 MG tablet Take 1 (one) tablet by mouth every 6 hours as needed for Nausea/Vomiting Allow tablet to dissolve on the tongue 10 tablet 5 Active Additional Information Patient not taking.Reported on 01/18/2025 senna (Senokot) 8.6 MG tablet Take 1 (one) tablet by mouth 2 times daily Hold for loose stool or diarrhea 30 tablet 5 Active Additional Information Patient not taking.Reported on 01/18/2025 acetaminophen (Tylenol) 325 MG tablet Take 2 (two) tablets by mouth every 6 hours as needed for Fever or Pain Maximum allowable Acetaminophen amount = 4 Grams (4000 mg) / 24 hours. 40 tablet 5 Active ibuprofen (Motrin) 200 MG tablet Take 2 (two) tablets by mouth every 6 hours as needed for Pain 60 tablet 5 Active Active Problems Problem Noted Date Diagnosed Date SUKHJINDER (stress urinary incontinence, female) 2021 Urge incontinence of urine 10/17/2021 Fecal Incontinence 10/17/2021 POP-Q stage 2 rectocele 10/17/2021 Cellulitis of breast 03/07/2020 Vulvar varicose veins 12/31/2019 Symptomatic varicose veins of right lower extrem ity 12/31/2019 At high risk for breast cancer 06/08/2019 Cellulitis of left breast 03/11/2019 Osteoporosis with current pa thological fracture with delayed healing 01/23/2019 Overview (09/08/2021): Last Assessment & Plan: # Osteoporosis with Fragility Fractures -Etiology in setting of BRCA gene carrier status-post prophylactic jlkg-icssqvfjfozerasf-bhefealiffgc, hysterectomy, bilateral mastectomy -No hormonal replacement therapy in context of associated cancer risk -Counseled on diet and lifestyle changes Calcium (1,200 mg/day) & Vit D3 (800 IU/day) supplementation Exercise (moderate-intensity) 30 min x 3 days/week Non-smoker -Pharmacological therapy indications: History of low-trauma fragility fracture Osteoporosis on DEXA T-score ?-2.5 (DXA) at the femoral neck -PO bisphosphonates not recommended in context of reported malabsorption; no other contraindications -Patient did receive single dose of SQ Denosumab (Prolia, anti-RANKL mAb) a few months prior from [facility] -Recommendations: -IV Zolendronate (Reclast) 5 mg over 15 min q 1 year (treatment); arrange for IV infusion Should have normal serum calcium and 25-hydroxyvitamin D levels prior to starting therapy Assess GFR renal function prior to starting therapy Monitor for atypical fractures, osteonecrosis -Repeat DEXA scan every 2 years -Patient inquiring about bone marrow biopsy to assess for underlying pathology besides low bone mass Last Assessment & Plan: # Osteoporosis with Fragility Fractures -Etiology in setting of BRCA gene carrier status-post prophylactic mjol-oocastxyvevegrnu-zzvwvlshjqjd, hysterectomy, bilateral mastectomy -No hormonal replacement therapy in context of associated cancer risk -Counseled on diet and lifestyle changes Calcium (1,200 mg/day) & Vit D3 (800 IU/day) supplementation Exercise (moderate-intensity) 30 min x 3 days/week Non-smoker -Pharmacological therapy indications: History of low-trauma fragility fracture Osteoporosis on DEXA T-score ?-2.5 (DXA) at the femoral neck -PO bisphosphonates not recommended in context of reported malabsorption; no other contraindications -Patient did receive single dose of SQ Denosumab (Prolia, anti-RANKL mAb) a few months prior from [facility] -Recommendations: -IV Zolendronate (Reclast) 5 mg over 15 min q 1 year (treatment); arrange for IV infusion Should have normal serum calcium and 25-hydroxyvitamin D levels prior to starting therapy Assess GFR renal function prior to starting therapy Monitor for atypical fractures, osteonecrosis -Repeat DEXA scan every 2 years -Patient inquiring about bone marrow biopsy to assess for underlying pathology besides low bone mass Lytic bone lesions on xray 08/19/2018 Cellulitis 05/21/2018 Postoperative state 10/19/2017 Menometrorrhagia 09/18/2017 Enlarged uterus 09/18/2017 Preop cardiovascular exam 05/12/2017 Pelvic pain in female 05/12/2017 Dyspareunia in female 05/12/2017 Systemic lupus erythematosus 04/08/2017 Hydronephrosis 04/08/2017 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 Initial biopsies by Dr Howard with subsequent definitive treatment and reconstruction at [facility]. Clinical trial participant 10/16/2016 Overview (11/11/2016): S/p 10/10/2016 bilateral nipple sparing simple mastectomy with immediate reconstruction with prepectoral implants (Jonathna/Asher): all benign. No PASH seen. [facility] outside review of prior slides also did not see/interpret as PASH. Participating in [place] [employer] nipple sparing registry study. S/p 11/09/2016 left removal infected implant (asher) Family history of breast cancer 06/22/2016 Overview (10/16/2016): Lifetime risk for developing breast cancer was predicted to be: Calculated July, 13 % with the Monserrat model, (5 biopsies); 29 % with the Tyrer-Cuzick model, (version 8, with hyperplasia); 10 % with the Chucky model, and 11 % with the BRCAPRO model. S/p 10/10/2016 bilateral nipple sparing simple mastectomy with immediate reconstruction with prepectoral implants (Jonathan/Asher): benign Participating in [place] [employer] nipple sparing registry study. No routine imaging needed of breasts. Vitamin A deficiency Nyctalopia Peripheral visual field defect of both eyes Iliac vein stenosis, right Resolved Problems Problem Noted Date Diagnosed Date Resolved Date Mass of upper outer quadrant of left breast 12/02/2018 01/11/2019 Overview (01/11/2019): Left upper outer. Near inferior aspect of curvilinear scar somewhat close to axilla. 4-5 mm on exam. 12/02/2018 ultrasound: 5 mm lymph node with slightly thickened cortex. Likely reactive. BI-RADS 3 with recommendation for 6 months follow up left breast ultrasound which would be due in May,. Plan six-month follow up physical exam as well. Pt decided bx 01/06/2019 left axillary node US core: Benign lymph node fragments Abnormal finding on breast imaging 12/02/2018 01/11/2019 Overview (07/14/2019): Left upper outer. Near inferior aspect of curvilinear scar somewhat close to axilla. 4-5 mm on exam. 12/02/2018 ultrasound: 5 mm lymph node with slightly thickened cortex. Likely reactive. BI-RADS 3 with recommendation for 6 months follow up left breast ultrasound which would be due in May,. Plan six-month follow up physical exam as well. 12/29/2018 update: rheumatology wants to start rituximab, but wants node bx'd first. 01/06/2019 left axillary node US core: benign lymph node fragments. 06/08/2019 left axillary ultrasound, Milagro. Re-demonstrated lymph node left axilla which measures 6 x 6 x 3 mm. Appears identical to prior outside examination. BI- RADS 2 Nipple discharge 03/07/2018 12/02/2018 Overview (12/02/2018): Right. Consistent with nipple epidermal inclusion cyst. 03/07/2018 Jonathan. There is 1 at 12 o'clock and suggestion of 2 others in her lower outer and lower inner nipple. Discussed skin punch biopsy removal of the lesion at 12 o'clock verses removal of entire nipple and she would prefer to have entire right nipple removed, so recommended that she have her plastic surgeon do this. March, bilateral mobile nipple areolar complex, Dr. Sterling. Benign Bile leak, postoperative 09/18/201701/2019 Overview (09/18/2017): Underwent stent placement 08/27/17. Due for removal 10/11 Postoperative infection of breast incision 10/30/2016 12/02/2018 Overview (11/11/2016): Left Abx, oral and IV S/p 11/09/2016 removal left implant (sterling) Abnormal finding on breast imaging 06/22/2016 10/16/2016 Overview (10/16/2016): Left. Multiple complicated cysts noted on ultrasound of the left breast, [facility]. BI-RADS category 3. Due left US 10/2016. Pt saw Dr. Howard, who did US and core bx bilateral breast in ~05/2016, which reportedly showed bilateral PASH. 06/25/2016 right breast excisional biopsy, 10 o'clock, 5 cm from nipple. Nonproliferative fibrocystic changes consisting of fibrosis, duct ectasia, apocrine metaplasia, and adenosis. Changes consistent with pseudoangiomatous stromal hyperplasia (PASH). Dr. Gloria Howard (surgeon) 06/25/2016 left breast excisional biopsy, palpable lump: Nonproliferative fibrocystic changes consisting of fibrosis, duct ectasia, apocrine metaplasia, and adenosis. Changes consistent with PASH. Dr. Gloria Howard (surgeon) 06/25/2016 left breast ultrasound-guided needle localized excisional biopsy, 8 o'clock: Proliferative fibrocystic changes without atypia, consisting of fibrosis, duct ectasia, and columnar cell hyperplasia. Changes consistent with PASH. Dr. Gloria Howard (surgeon) 07/30/2016 left breast needle loc excisional biopsy upper inner mass, and excisional biopsy upper outer mass, Lee: both PASH 08/02/2016 jonathan: exam with new baseline imaging 10/2016; likely nazanin diag mamm and left US S/p 10/10/2016 bilateral nipple sparing simple mastectomy with immediate reconstruction with prepectoral implants (Jonathan/Asher): all benign. No PASH seen. [facility] outside review of prior slides also did not see/interpret as PASH. Participating in [place] [employer] nipple sparing registry study. Encounters Date Type Department Care Team Description 01/18/2025 11:00 AM CDT Office Visit [facility] [address] [place] [phone] Jeremy Kelly MD Bilateral ovarian cysts (Primary Dx); Family history of breast cancer 01/18/2025 Travel 01/05/2025 11:31 AM CDT - 01/05/2025 2:38 PM CDT Surgery [facility] [address] [place] [address] Jeremy Kelly MD LAPAROSCOPIC LEFT OOPHORECTOMY, RIGHT OVARIAN CYSTECTOMY 01/05/2025 11:07 AM CDT Anesthesia Event [facility] [address] [place] [address] Mukesh Jon MD 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, 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, 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 01/05/2025 9:26 AM CDT - 01/05/2025 5:09 PM CDT Hospital Encounter [facility] [address] [place] [address] Jeermy Kelly MD Surgery General Discharge Disposition: Home or Self Care 01/05/2025 Travel 12/31/2024 Travel 12/30/2024 Telephone [facility] [address] [place] [address] Ave [address] [place] [phone] Jeremy Kelly MD Surgery Scheduling 12/28/2024 1:00 PM CDT Office Visit [facility] [address] [place] [address] Ave [address] [place] [phone] Jeremy Kelly MD Bilateral ovarian cysts (Primary Dx); Elevated CA-125; Elevated CEA; Visit for pelvic exam 12/28/2024 Travel 12/16/2024 Telephone [facility] [address] [place] [address] Ave [address] [place] [address] Tiago Sagastume MD Establish Care 12/16/2024 Orders Only [facility] [address] [place] [phone] Don Petersen MD Bilateral ovarian cysts ; Elevated CA-125; Elevated CEA 12/16/2024 Results Follow-Up [facility] [address] [place] [address], [facility] [address] [place] [address] Don Petersen MD 12/09/2024 3:15 PM CDT Office Visit [facility] [address] [place] [address], [facility] [address] [place] [address] Don Petersen MD Bilateral ovarian cysts (Primary Dx) from Last 3 Months Immunizations Immunization Administration Dates Next Due INFLUENZA VACCINE, QUADR. (F LUZONE; FLULAVAL; FLUARIX; AFLURIA QUADRIVALENT; 6MO+), 0.5 ML (IIV4) 04/08/2020(Deferred: Patient Refused),03/13/2019,2018 Family History Medical History Relation Name Comments Other Brother Osteoarthritis Cancer - Breast Cousin 1 maternal yane e Cancer - Breast Cousin 2 maternal yane e Asthma Father Cancer - Prostate Father Cancer - Skin, Melanoma Father Hyperlipidemia Father Hypertension Father Leukemia Father CLL, living age 78; recurrence age 78 Other Father Osteoarthritis Cancer - Breast Maternal Aunt 1 Kavita living ag e 69 Cancer - Ovarian Maternal Aunt 2 Asthma Maternal Grandfather Lymphoma Maternal Grandfather lymphom a, age 71 Lupus Maternal Grandmother Arthritis - Rheumatoid Mother Lupus Mother Other Mother Heart Failure, Osteoarthritis, Rashes/Skin Problems Cancer - Breast Paternal Aunt 1 age 74 Cancer - Pancreatic Paternal Aunt 2 Lymphoma Paternal Uncle lymphoma, d age 62 Asthma Sister Relation Name Status Comments Brother Cousin 1 Alive Cousin 2 Alive Father Alive Maternal Aunt 1 Kavita Alive Maternal Aunt 2 Alive Maternal Grandfather Maternal Grandmother Mother Paternal Aunt 1 Paternal Aunt 2 Alive Paternal Uncle Sister Social History Tobacco Use Types Packs/Day Years Used Date Smoking Tobacco: Never Smokeless Tobacco: Never Tobacco Cessation:Counseling Given: Not Answered Alcohol Use Standard Drinks/Week Comments Not Currently 1 (1 standard drink = 0.6 oz pur e alcohol) Social - 1 week AUDIT-C Answer Date Recorded Q1: How often do you have a drink containing alc ohol? Monthly or less 07/17/2024 Q2: How many drinks containi ng alcohol do you have on a typical day when you are drinking? 1 or 2 07/17/2024 Q3: How often do you have si x or more drinks on one occasion? Never 07/17/2024 PHQ-2 Answer Date Recorded Patient Health Questionnaire-2 Score 0 01/15/2025 Hunger Vital Sign Answer Date Recorded Within the past 12 months, y ou worried that your food would run out before you got the money to buy more. Never true 12/29/19 Within the past 12 months, t he food you bought just didn't last and you didn't have money to get more. 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 Not on file Not on file Not on file Last Filed Vital Signs Vital Sign Reading Time Taken Comments Blood Pressure 110/80 01/18/2025 11:05 AM CDT Pulse 79 01/05/2025 4:12 PM CDT Temperature 36.4 C (97.5 F) 01/05/2025 1:20 PM CDT Respiratory Rate 16 01/05/2025 4:12 PM CDT Oxygen Saturation 96% 01/05/2025 4:12 PM CDT Inhaled Oxygen Concentration - - Weight 51 kg (112 lb 6.4 oz) 01/18/2025 11:05 AM CDT Height 160 cm (5' 3) 01/18/2025 11:05 AM CDT Body Mass Index 19.91 01/18/2025 11:05 AM CDT Plan of Treatment Health Maintenance Due Date Last Done Comments COLOGUARD (AGES 45-75) - COLON CA SCREENING 1975 COLON MONITORING 1975 COLONOSCOPY - COLON CA SCREENING 1975 CT COLONOGRAPHY - COLON CA SCREENING 1975 Colorectal Cancer Screening 1975 FIT - COLON CA SCREENING 1975 FLEX SIG - COLON CA SCREENING 1975 LIPID TESTING 1975 MEDICARE AWV 12 MONTHS 1975 HIV SCREENING 1990 HEPATITIS C SCREENING 05/18/1993 DTAP/TDAP/TD VACCINES (1 - Tdap) 1994 HEPATITIS B VACCINE (1 of 3 - 19+ 3-dose series) 1994 MAMMOGRAM 09/01/2020 09/01/2018, 06/25/2016, 05/02/2016 COVID-19 VACCINE (1 - 2023-2 5 season) 2025 INFLUENZA VACCINE (#1) 2025 9, 2018 ZOSTER VACCINE (1 of 2) 2025 PAP with HPV Discontinued 11/16/2016 DEPRESSION SCREENING Completed 11/04/2024, 08/21/2021 HIB VACCINE Aged Out No longer eligi ble based on patient's age to complete this topic HPV VACCINE Aged Out No longer eligi ble based on patient's age to complete this topic MENINGOCOCCAL (Group B) VACCINE SHARED DECISION-MAKING Aged Out No longer eligible based on patient's age to complete this topic MENINGOCOCCAL GROUPS A/C/Y/W VACCINE Aged Out No longer eligible based on patient's age to complete this topic Medical Devices Implanted Type Area Hematology Nurse Device Identifier Shelf Expiration Date Model / Serial / Lot Alloderm Select Tissue Matrix Rtu Implanted:Qty: 1 on 10/10/2016 by Alfredo Sterling MD at [facility] Left: Breast [id number] 07/25/2018 [id number] / / [id number] Alloderm Select Tissue Matrix Rtu Implanted:Qty: 1 on 10/10/2016 by Alfredo Sterling MD at [facility] Right: Breast [id number] 07/25/2018 [id number] / / [id number] Allergan Natrelle 410 Highly Cohesive Anatomically Shaped Silicone Filled Breast Implant Biocell Full Height Moderate Projection Implanted:Qty: 1 on 10/10/2016 by Alfredo Sterling MD at [facility] Left: Breast 03/21/2019 [id number] / [id number] / Allergan Natrelle 410 Highly Cohesive Anatomically Shaped Silicone Filled Breast Implant Biocell Full Height Moderate Projection Implanted:Qty: 1 on 10/10/2016 by Alfredo Sterling MD at [facility] Right: Breast 10/26/2019 [id number] / [id number] / Impl Brst 13.5x14cm 440ml Sty [facility] Chsv - [id number] Implanted:Qty: 1 on 12/07/2016 by Alfredo Sterling MD at [facility] Left: Breast Aller[employer] Medical Opt[employer] 03/21/2019 [id number] / [id number] / Alloderm Select Tissue Matrix Rtu Implanted:Qty: 1 on 12/07/2016 by Alfredo Sterling MD at [facility] Left: Breast 09/24/2018 [id number] / / [id number] Alloderm Tissue Matrix Rtu Implanted:Qty: 1 on 04/01/2017 by Alfredo Sterling MD at [facility] Left: Breast Lifecell Alvino [id number] 09/24/2018 [id number] / / [id number] Impl Brst 13.5x14cm 440ml Sty [facility] - [id number] Implanted:Qty: 1 on 04/01/2017 by Alfredo Sterling MD at [facility] Left: Breast [employer]er[employer] 03/21/2019 [id number] / [id number] / Description:prep solution: s casi mixed with Bacitracin, Ancef, Gentamycin Saline Lot # [id number] exp 12/26/2019 Ancef 1g lot # [id number] exp 01/25/2019 Gentamycin 80mg lot #[id number] exp 04/26/2018 Bacitracin 90454 units lot#[id number] 04/26/2019 Impl Brst Natrelle Inspira Mdrt Prfl - [id number] Implanted:Qty: 1 on 02/23/2019 by Alfredo Sterling MD at [facility] Right: Breast Aller[employer] Medical Optics 12/25/2022 [place] [address] / [id number] / Mtrx Tissue 78x64px Aldrm Slct Duo Xthck Implanted:Qty: 1 on 02/23/2019 by Alfredo Sterling MD at [facility] Left: Breast Lifecell Alvino 11/24/2020 [id number] / / [id number] Mtrx Tissue [id number] Aldrm Slct Duo Xthck Implanted:Qty: 1 on 02/23/2019 by Alfredo Sterling MD at [facility] Right: Breast Lifecell Alvino 11/24/2020 [id number] / / [id number] Mtrx Tissue 77x27yr Aldrm Slct Duo Implanted:Qty: 1 on 04/10/2019 by Alfredo Sterling MD at [facility] Left: Breast Lifecell Alvino 01/25/2021 [id number] / / [id number] Mtrx Tissue [id number] Aldrm Slct Duo Implanted:Qty: 1 on 02/15/2020 by Alfredo Sterling MD at [facility] Left: Breast Lifecell Alvino 09/24/2021 [id number] / / [id number] Impl Brst Natrelle Inspira Mdrt Prfl 445 - [id number] Implanted:Qty: 1 on 02/15/2020 by Alfredo Sterling MD at [facility] Left: Breast [employer]er[employer] 01/15/2024 [place] [address] / [id number] / Stent Venovo 16mm 80mm Vns Radopq Gw Implanted:Qty: 1 on 03/01/2020 by Navjot Loya MD at [facility] 07/24/2021 [id number] / / [id number] Impl Brst Natrelle Inspira Mdrt Prfl 445 - [id number] Implanted:Qty: 1 on 06/24/2020 by Alfredo Sterling MD at [facility] Left: Breast [employer]er[employer] 04/16/2023 [place] [address] / [id number] / [id number] Sys Ureth Supp Obtryx Midurethral Trnstr Implanted:Qty: 1 on 12/27/2021 by Anuj Acuña MD at [facility] [employer] [facility] Scimed 10/24/2024 [id number] / / [id number] Explanted Type Area Hematology Nurse Device Identifier Shelf Expiration Date Model / Serial / Lot Impl Brst Natrelle Inspira Mdrt Prfl - [id number] Implanted:Qty: 1 on 02/23/2019 by Alfredo Sterling MD at [facility] Explanted:Qty: 1 on 03/12/2019 by Alfredo Sterling MD at [facility] Left: Breast Aller[employer] Medical [employer] 12/25/2022 [place] [address] / [id number] / Impl Brst Natrelle Inspira Mdrt Prfl 445 - [id number] Implanted:Qty: 1 on 04/10/2019 by Alfredo Sterling MD at [facility] Explanted:Qty: 1 on 02/15/2020 by Alfredo Sterling MD at [facility] Left: Breast Allergan Medical Optics 10/31/2023 [facility]-445 / [id number] / Procedures Procedure Name Priority Date/Time Associated Diagnosis Comments CARDIAC RHYTHM STRIP ORDER 01/07/2025 7:46 PM CDT PATHOLOGY TISSUE EXAM (STL) Routine 01/05/2025 12:06 PM CDT Diagnosis unknown CYTOLOGY NON-LINE BUILDER PANEL (STL) Routine 01/05/2025 11:58 AM CDT Diagnosis unknown ENDOTRACHEAL TUBE NOTE Routine 01/05/2025 11:20 AM CDT MI LAP,RMV ADNEXAL STRUCTURE 01/05/2025 10:57 AM CDT Diagnosis unknown TYPE + SCREEN PANEL STAT 01/05/2025 1 0:29 AM CDT BASIC METABOLIC PANEL (CALCIUM TOTAL) STAT 01/05/2025 10:29 AM CDT Preop testing CBC W AUTO DIFFERENTIAL STAT 01/05/2025 10:29 AM CDT Pelvic pain in female HUMAN EPIDIDYMIS PROTEIN 4 (HE4) Routine 12/15/2024 3:30 PM CDT Bilateral ovarian cysts CANCER ANTIGEN (CA)125 BLOOD Routine 12/15/2024 3:30 PM CDT Bilateral ovarian cysts CEA BLOOD Routine 12/15/2024 3:30 PM CDT Bilateral ovarian cysts MAMMOGRAPHY ORDER Routine 09/01/2018 PAP IG LB+HPV HR RFLX 16,18 Routine 11/16/2016 11:09 AM CDT Encounter for gynecological examination (general) (routine) with abnormal findings from Last 3 Months or Most Recently Relevant to Health Maintenance Results * CARDIAC RHYTHM STRIP ORDER (01/07/2025 7:46 PM CDT) Narrative 01/07/2025 7:46 PM CDT Ordered by an unspecified provider. us Scanned Document CARDIAC SERVICES ORDERABLES Fin al Result * PATHOLOGY TISSUE EXAM (STL) (01/05/2025 12:06 PM CDT) Case Report Surgical Pathology Report Case: [id number] Authorizing Provider: Jeremy Kelly MD Collected: 01/05/2025 12:06 PM Ordering Location: [facility] Received: 01/05/2025 12:11 PM Pathologist: Kelly Rodgers MD Specimens: A) - Ovary, left ovary B) - Ovarian Cyst, right ovarian cyst 01/06/2025 8:31 AM CDT [facility] Final Diagnosis Ovary, left, oophorectomy (A, including FSA1) - Corpus luteum - Cystic follicle Ovary, right, cyst, excision (B, including FSB1) - Corpus luteum 01/06/2025 8:31 AM CDT [facility] at 0831 CDT Clinical History The patient is a 49-year-old woman with ovarian cysts. Operative procedure: left oophorectomy, right ovarian cyst excision. 01/06/2025 8:31 AM CDT [facility] Frozen Section The frozen section diagnoses are as rendered below. FSA1: Ovary, left, oophorectomy - No evidence of malignancy The specimen was received at 1209 on 01/05/25 and was reported to Dr. Kelly at [address] Rodgers. FSB1: Ovary, right, cyst, excision - No evidence of malignancy The specimen was received at 1223 on 01/05/25 and was reported to Dr. Kelly at [address] Rodgers. 01/06/2025 8:31 AM CDT [facility] Gross Description The specimens are identified with the patient's name and date of . A. Received fresh for frozen, specimen left ovary is a ovary, 3.5 x 2.7 x 1.1 cm, with attached portions of cyst, 2.5 cm diameter and a 2.6 cm lesion. The lesion is sectioned showing pink-mckeon, pink-yellow, hemorrhagic cut surfaces, possibly consistent with corpus luteum. The cyst has a pink-mckeon lining mildly congested lining with possible yellow-white, sebaceous areas. The ovary has a pink-mckeon, wrinkled surface and sectioning shows normal ovarian parenchyma. Equipment Man sections submitted as follows: A1-frozen section control of FSA1, A2-presumed corpus luteum, A3-A4- ovary, A5-A6-cyst Received fresh for frozen, specimen B, right ovarian cyst is an aggregate of pink-mckeon tissues, 2.5 x 2.0 x 0.3 cm. Entirely submitted for frozen and resubmitted for permanent in cassette B1 (FS B1). LJ 01/06/2025 8:31 AM [facility] Microscopic Description Microscopic examination substantiates the above diagnosis. Permanent sections confirm the frozen section diagnosis. 01/06/2025 8:31 AM [facility] Pathologist Location at [facility] 01/06/2025 8:31 AM [facility] Disclaimer All histochemical and/or immunohistochemical results are interpreted with controls that demonstrate appropriate staining reactions before reporting results. Note on use of immunocytochemistry reagents: This test was developed and its performance characteristic determined by [facility], Department of Laboratory Medicine. It has not been cleared or approved by the U.S. Food and Drug Administration (FDA). The FDA has determined that such clearance or approval is not necessary. The test is used for clinical purpose. It should not be regarded as investigational or for research. This laboratory is certified to perform high complexity testing. The performance characteristics of the IHC/CORINNA assays have been validated on formalin-fixed paraffin embedded tissues only. The assays have not been validated on decalcified tissues. Results should be interpreted with caution. 01/06/2025 8:31 AM [facility] Embedded Images 01/06/2025 8:31 AM [facility] Pathology/Cytology ENTIRE OVARY / Unknown 01/05/2025 12:06 PM CDT 01/05/2025 12:11 PM CDT Comment:Pre-op diagnosis: Diagnosis unknown [R69] Miscellaneous samples (specimen) OVARIAN CYST SPECIMEN / Unknown 01/05/2025 12:17 PM CDT 01/05/2025 12:24 PM CDT Comment:Pre-op diagnosis: Diagnosis unknown [R69] Jeremy Kelly MD LAB - PATHOLOGY/CYTOLOGY ORDER BERTO Final Result [facility] [address] [place] [address] * CYTOLOGY NON-LINE BUILDER PANEL (STL) (01/05/2025 11:58 AM CDT) Case Report Cytology Non Sew Out Operator Report Case: [id number] Authorizing Provider: Jeremy Kelly MD Collected: 01/05/2025 11:58 AM Ordering Location: [facility] Received: 01/05/2025 01:45 PM Pathologist: Austin Granados MD Specimen: Pelvic Washings, pelvic washings 01/06/2025 10:20 AM CDT [facility] Final Diagnosis Pelvic washing: - [place] to reactive-appearing mesothelium - No carcinoma identified 01/06/2025 10:20 AM [facility] at 1020 CDT Clinical History Per operative note, ovarian cysts. 01/06/2025 10:20 AM CDT [facility] Gross Description 40 mL of clear fluid is received. A Pap-stained ThinPrep slide and H&E-stained cell block sections are produced. GRW 01/06/2025 10:20 AM CDT [facility] Microscopic Description In a Pap-stained ThinPrep slide as well as H&E-stained cell block sections, there is mesothelium, most present as thin sheets in the ThinPrep slide. No large cohesive aggregates of malignant-appearing epithelium are identified. 01/06/2025 10:20 AM CDT [facility] Pathologist Location at [facility] 01/06/2025 10:20 AM CDT [facility] Disclaimer All histochemical and/or immunohistochemical results are interpreted with controls that demonstrate appropriate staining reactions before reporting results. Note on use of immunocytochemistry reagents: This test was developed and its performance characteristic determined by [facility], Department of Laboratory Medicine. It has not been cleared or approved by the U.S. Food and Drug Administration (FDA). The FDA has determined that such clearance or approval is not necessary. The test is used for clinical purpose. It should not be regarded as investigational or for research. This laboratory is certified to perform high complexity testing. The performance characteristics of the IHC/CORINNA assays have been validated on formalin-fixed paraffin embedded tissues only. The assays have not been validated on decalcified tissues. Results should be interpreted with caution. 01/06/2025 10:20 AM CDT [facility] Embedded Images 01/06/2025 10:20 AM CDT [facility] Pathology/Cytolo gy SPECIMEN OBTAINED BY PERITONEAL LAVAGE / Unknown 01/05/2025 11:58 AM CDT 01/05/2025 1:45 PM CDT Comment:Pre-op diagnosis: Diagnosis unknown [R69] Jeremy Kelly MD LAB - PATHOLOGY/CYTOLOGY ORDER BERTO Final Result [facility] [address] [place] [id number] * ETT LINE PERFORMABLE (01/05/2025 11:20 AM CDT) Narrative Kelly Marin APRN-CRNA - 01/05/2025 11:20 AM CDT Kelly Marin APRN-CRNA 01/05/2025 11:20 AM Endotracheal Tube Placement: Patient Location: OR. Procedure: intubation ([id number]) Procedure Section: Sedation: under general anesthesia. Indications for Airway Management: anesthesia Procedure pretreatments used? No Induction: standard IV Patient Position: sniffing Mask Ventilation: easy. Blade Type: Kirti (MG3 easy) Blade Size: 3 Laryngoscopy View: grade 1 (full cords) Tube: endotracheal tube Placement: oral Tube type: cuff - inflated Tube Size (MM): 7 Depth of Insertion (CM): 22 Measured From: lips Cuff volume (mL): 8 Cuff Inflated With: air Number of Attempts: 1. Placement Verified By: direct visualization, CO2 monitor and bilateral breath sounds Tube secured with: adhesive tape. Dentition unchanged? Yes Difficult Airway? No. Staff Section Anesthesia Provider: Kelly Marin, 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, Performed the procedure Additional Comments: PATIENT INTUBATED WITH EASE, ATRAUMATIC. + BBS. +ECO2. DENTITION UNCHANGED. BILATERAL EYES TAPED WITH EYEGUARD PRIOR TO INTUBATION.. Mukesh Jon MD GENERAL ANESTHESIA ORDERABLE S Final Result * TYPE + SCREEN PANEL (01/05/2025 10:29 AM CDT) Pathologist [facility] ABO Rh B POS 01/05/2025 11:19 AM CDT [facility] Comment:History checked. Antibody Screen NEG 11:19 AM CDT [facility] Blood Bank BLOOD SPECIMEN / Unknown Venipuncture / Unknown 01/05/2025 10:29 AM CDT 01/05/2025 10:32 AM CDT Jeremy Kelly MD LAB - BLOOD BANK ORDERABLES Fi nal Result [facility] [address] [phone] * CBC W AUTO DIFFERENTIAL (01/05/2025 10:29 AM CDT) Pathologist [facility] WBC 4.9 4.0 - 10.7 x10E9/L 01/05/2025 10:52 AM CDT [facility] RBC Count 4.47 3.90 - 5.20 x10E12/L 01/05/2025 10:52 AM CDT [facility] Hemoglobin 13.5 11.9 - 15.8 g/dL 01/05/2025 10:52 AM CDT [facility] Hematocrit 39.3 34.8 - 46.1 % 01/05/2025 10:52 AM CDT [facility] MCV 87.9 80.0 - 98.0 fL 01/05/2025 10:52 AM CDT [facility] MCH 30.2 26.7 - 33.6 pg 01/05/2025 10:52 AM CDT [facility] MCHC 34.4 31.7 - 36.3 g/dL 01/05/2025 10:52 AM CDT [facility] RDW-CV 12.4 11.3 - 14.8 % 01/05/2025 10:52 AM CDT [facility] Platelet Count 195 150 - 420 x10E9/L 01/05/2025 10:52 AM CDT [facility] MPV 10.7 7.8 - 11.4 fL 01/05/2025 10:52 AM CDT [facility] Neutrophil % 63.8 41.0 - 74.0 % 01/05/2025 10:52 AM CDT [facility] Lymphocyte % 27.3 17.0 - 47.0 % 01/05/2025 10:52 AM CDT [facility] Monocyte % 7.5 3.0 - 11.0 % 01/05/2025 10:52 AM CDT [facility] Eosinophil % 0.6 0.0 - 7.0 % 01/05/2025 10:52 AM CDT [facility] Basophil % 0.4 0.0 - 1.6 % 01/05/2025 10:52 AM CDT [facility] Immature Granulocytes % 0.4 0.0 - 1.0 % 01/05/2025 10:52 AM CDT [facility] Neutrophil Absolute 3.15 1.60 - 7.50 x10E9/L 01/05/2025 10:52 AM CDT [facility] Lymphocyte Absolute 1.35 1.00 - 4.40 x10E9/L 01/05/2025 10:52 AM [facility] Monocyte Absolute 0.37 0.15 - 1.00 x10E9/L 01/05/2025 10:52 AM T [facility] Eosinophil Absolute 0.03 0.00 - 0.60 x10E9/L 01/05/2025 10:52 AM CDT [facility] Basophil Absolute 0.02 0.00 - 0.13 x10E9/L 01/05/2025 10:52 AM [facility] Blood BLOOD SPECIMEN / Unknown Venipuncture / Unknown 01/05/2025 10:29 AM CDT 01/05/2025 10:40 AM CDT Jeremy Kelly MD LAB - HEMATOLOGY ORDERABLES Fi nal Result Performing Organization Address City/[facility]/ZIP Co de Phone Number [facility] [address] [place] [address] * (ABNORMAL) BASIC METABOLIC PANEL (CALCIUM TOTAL) (01/05/2025 10:29 AM CDT) [facility] Glucose 85 70 - 99 mg/dL 01/05/2025 11:04 AM [facility] Sodium 137 136 - 145 mmol/L 01/05/2025 11:04 AM [facility] Potassium 4.2 3.5 - 5.1 mmol/L 01/05/2025 11:04 AM [facility] Chloride 108(H) 98 - 107 mmol/L 01/05/2025 11:04 AM [facility] CO2 19(L) 22 - 29 mmol/L 01/05/2025 11:04 AM [facility] Calcium 9.3 8.4 - 10.4 mg/dL 01/05/2025 11:04 AM [facility] Anion Gap 10 6 - 16 mmol/L 01/05/2025 11:04 AM [facility] BUN 24(H) 5.3 - 18.7 mg/dL 01/05/2025 11:04 AM [facility] Creatinine 0.73 0.57 - 1.11 mg/dL 01/05/2025 11:04 AM [facility] eGFR by CKD-EPI >90 >=90 mL/min/1.7 3 m2 01/05/2025 11:04 AM [facility] Comment:Estimated Glomerular Filtration Rate (eGFR) calculated using the CKD-EPI Creatinine Equation (2020), per the National Kidney Foundation and [place] [employer] of Nephrology recommendations. Blood BLOOD SPECIMEN / Unknown Venipuncture / Unknown 01/05/2025 10:29 AM CDT 01/05/2025 10:40 AM T Juan Parkinson MD LAB - CHEMISTRY ORDERABLES Final Result Performing Organization Address City/[facility]/ZIP Co de Phone Number [facility] [address] [place] [address] * HUMAN EPIDIDYMIS PROTEIN 4 (HE4) (12/15/2024 3:30 PM CDT) HE4 50.9 0.0 - 63.6 pmol/L [facility] ACCOUNT BILL Comment: [facility] Electrochemiluminescence Immunoassay (ECLIA) Values obtained with different assay methods or kits cannot be used interchangeably. Results cannot be interpreted as absolute evidence of the presence or absence of malignant disease. Blood BLOOD SPECIMEN / Unknown 12/15/2024 3:30 PM CDT 12/15/2024 Narrative [facility] ACCOUNT BILL - 12/17/2024 3:10 PM CDT Performed at: - [address] [id number] Hydrotreater Operator: Lexa Green MD, Phone: [phone] Don Petersen MD LAB - CHEMISTRY ORDERABLES Fi nal Result Performing Organization Address [facility] Co de Phone Number [facility] ACCOUNT BILL [address] [place] [address] * (ABNORMAL) CANCER ANTIGEN (CA)125 BLOOD (12/15/2024 3:30 PM CDT) CA 125 42.7(H) 0.0 - 38.1 U/mL [facility] ACCOUNT BILL Comment: [employer] Electrochemiluminescence Immunoassay (ECLIA) Values obtained with different assay methods or kits cannot be used interchangeably. Results cannot be interpreted as absolute evidence of the presence or absence of malignant disease. Blood BLOOD SPECIMEN / Unknown 12/15/2024 3:30 PM CDT 12/15/2024 Narrative [facility] ACCOUNT BILL - 12/16/2024 11:11 AM CDT Performed at: - [facility] [address] [place], [place] [id number] Hydrotreater Operator: Med Salcido PhD, Phone: [phone] Don Petersen MD LAB - CHEMISTRY ORDERABLES Fi nal Result Performing Organization Address [facility] Co de Phone Number [facility] ACCOUNT BILL [address] [place] [address] * CEA BLOOD (12/15/2024 3:30 PM CDT) CEA 4.1 0.0 - 4.7 ng/mL [facility] ACCOUNT BILL Comment: Nonsmokers <3.9 Smokers <5.6 [facility] Electrochemiluminescence Immunoassay (ECLIA) Values obtained with different assay methods or kits cannot be used interchangeably. Results cannot be interpreted as absolute evidence of the presence or absence of malignant disease. Blood BLOOD SPECIMEN / Unknown 12/15/2024 3:30 PM CDT 12/15/2024 Narrative [facility] ACCOUNT BILL - 12/16/2024 8:12 AM CDT Performed at: - [address] [id number] Hydrotreater Operator: Med Salcido PhD, Phone: [phone] Don Peteresn MD LAB - CHEMISTRY ORDERABLES Fi nal Result Performing Organization Address City/State/[facility] Co de Phone Number [facility] ACCOUNT BILL [address] [place] [address] * MAMMOGRAPHY ORDER (09/01/2018) Anatomical Region Laterality Modality Mammography Scanned Document MAMMO ORDERABLES Final Result * PAP IG LB+HPV HR RFLX 16,18 (11/16/2016 11:09 AM CDT) Diagnosis [facility] INSURANCE BILL Comment: NEGATIVE FOR INTRAEPITHELIAL LESION AND MALIGNANCY. FUNGAL ORGANISMS MORPHOLOGICALLY CONSISTENT WITH JAMES SPECIES ARE PRESENT. Specimen Adequacy [facility] INSURANCE BILL Comment: Satisfactory for evaluation. Endocervical and/or squamous metaplastic cells (endocervical component) are present. Clinician Provided ICD10 [facility] INSURANCE BILL Comment: Z01.411 Z80.3 N62 N92.0 N94.6 Performed by [facility] INSURANCE BILL Comment:Tiffany daley, Sr. Director (ASCP) Comment . [facility] INSURANCE BILL Pathologist Provided ICD10 [facility] INSURANCE BILL Comment:R87.5 Note [facility] INSURANCE BILL Comment: The Pap smear is a screening test designed to aid in the detection of premalignant and malignant conditions of the uterine cervix. It is not a diagnostic procedure and should not be used as the sole means of detecting cervical cancer. Both false-positive and false-negative reports do occur. . IGLBP CPT Code Automation [facility] INSURANCE BILL Comment: This liquid based ThinPrep(R) pap test was screened with the use of an image guided system. Human papillomavirus High Risk Negative Negative [facility] INSURANCE BILL Comment: This high-risk HPV test detects thirteen high-risk types (16/18/31/33/35/39/45/51/52/56/58/59/68) without differentiation. . Pathology/Cytolog y PART OF UTERINE CERVIX / Unknown 11/16/2016 11:09 AM CDT 11/19/2016 Narrative [facility] INSURANCE BILL - 11/20/2016 3:17 PM CDT Source.............Cervix LMP / Prev Treat...None No. of containers..01 CYTYC Thin Prep Vial Resulting Agency Comment [address] [phone] Don Petersen MD LAB - PATHOLOGY/CYTOLOGY ALLEGRA COBB Final Result [facility] INSURANCE BILL [address] [place] [address] from Last 3 Months or Most Recently Relevant to [place] [address] [place] [address] [place] [address] MEDICARE Advance Directives * Full Code (Latest Code Status on File) Date Activated Date Inactivated Comments 04/06/2020 5:41 PM 04/08/2020 10:39 AM * Full Code Date Activated Date Inactivated Comments 03/07/2020 9:01 PM 03/10/2020 12:46 PM * Full Code Date Activated Date Inactivated Comments 04/27/2019 3:57 PM 05/03/2019 12:35 PM * Full Code Date Activated Date Inactivated Comments 03/11/2019 7:54 PM 03/13/2019 1:48 PM * Full Code Date Activated Date Inactivated Comments 05/21/2018 2:24 PM 2018 7:36 PM Care Teams Aix System Administrator Relationship Specialty Start Date End Date Steven Altamirano MD [address] [place] [address] PCP - General Family Medicine 08/02/16 Maria M Reed, RN Revenue Integrity Analyst 10/11/16 Don Petersen MD [address] [phone] Shoe Repair Supervisor Obstetrics and Gynecology 10/17/21 Anuj Acuña MD [address] [facility] [address] [place] [phone] Shoe Repair Supervisor Urogynecology 10/17/21
--- OUTSIDE RECORDS SUMMARY | 2025-02-18 10:35 | XMS_ITS | Encounter Summary ---
Author Organization [facility] Address [facility] [facility] [place] [address] Care Team Providers Care Is/It Project Manager Name Role Phone Steven Altamirano MD Primary Care Provider [phone] Maria M Reed RN Unavailable [phone] Don Petersen MD Unavailable [phone] Anuj Acuña MD Unavailable [phone] Reason for Visit * Reason Onset Date Comments Surgery Scheduling 12/30/2024 Encounter Details Date Type Department Care Team (Late st Contact Info) Description 12/30/2024 Telephone [facility] - FORM PRESS OPERATOR [address] [facility] [address] [place] [address] Jeremy Kelly MD [address] [facility] [address] [place], [place] [id number] Surgery Scheduling Social History Tobacco Use Types Packs/Day Years Used Date Smoking Tobacco: Never Smokeless Tobacco: Never Alcohol Use Standard Drinks/Week Comments Yes 1 (1 standard drink = 0.6 oz [...] Date Recorded Patient Health Questionnaire-2 Score 0 12/21/2024 Hunger Vital Sign Answer Date Recorded Within the past 12 months, y ou worried that your food would run out before you got the money to buy more. Never true 12/29/19 22 Within the past 12 months, t he food you bought just didn't last and you didn't have money to get more. 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 Answer Date of Assessment Author No 07/17/2024 12:23 PM Mackenzie Padilla RN * Is person blind or have serious difficulty seeing? Answer Date of Assessment Author No 07/17/2024 12:23 PM Mackenzie Padilla RN * Does person have serious difficulty walking/climbing stairs? Answer Date of Assessment Author No 07/17/2024 12:23 PM Mackenzie Padilla RN * Does person have difficulty dressing/bathing? Answer Date of Assessment Author No 07/17/2024 12:23 PM Mackenzie Padilla RN * Does person have difficulty doing errands alone? Answer Date of Assessment Author No 07/17/2024 12:23 PM Mackenzie Padilla RN documented as of this encounter Mental Status * Does person have difficulty concentrating/remembering/making decisions? Answer Entry Date Author No 07/17/2024 12:23 PM Mackenzie Padilla RN documented in this encounter Miscellaneous Notes * Telephone Encounter - Deandra Bautista - 12/30/2024 10:19 AM CDT Called patient to schedule surgery. Per patient, her Carpet Finishing Supervisor does no longer work at the office were she was previously seen, butstates that her PCP has taken over her med management, therefore the methotrexate plan request should be faxed to Dr. Altamirano's office. (Inquiry will be sent to Dr. Kelly to clarify if this will be alright.) Patient verbalized understanding of the details listed below. Date of Procedure/Surgery: Sunday, January 05, 2025 Operating Physician: Jeremy Kelly MD. Arrival time: 9:15 a.m. Procedure/Surgery time: 11:15 a.m. ? Please note: All times are estimates. [facility] will contact the patient with finalized times no later than one day prior to the scheduled procedure. Surgery Location: [facility]. [address] [place] [address]. [place] [address] In-Person Follow-Up Appointment: Saturday, January 18, 2025 Arrival Time: 10:45 a.m. Appointment Time: 11:00 a.m. Location: [address] [place] [address], [address]. [place] [address] (4th Floor) documented in this encounter Plan of Treatment Not on file documented as of this encounter Visit Diagnoses Not on filedocumented in this encounter Care Teams Is/It Project Manager Relationship Specialty Start Date End Date Steven Altamirano MD [address] [place] [address] PCP - General Family Medicine 08/02/16 Maria M Reed RN Post Acute Care Nurse Practitioner 10/11/16 Don Petersen MD [address] [place] [phone] Nurses Educator Obstetrics and Gynecology 10/17/21 Anuj Acuña MD [address] [facility] [address] [place] [phone] Nurses Educator Urogynecology 10/17/21 documented as of this encounter
--- OUTSIDE RECORDS SUMMARY | 2025-02-18 10:35 | XMS_ITS | Clinical Summary ---
Author Organization [facility] Address [address], [address] [address] Phone Care Team Providers Care Project Manager Interior Design Name Role Phone Steven Altamirano MD Primary Care Provider Jhoan Rojo MD Unavailable [phone] Jeison Quiñonez DO Unavailable [phone] Allergies No known active allergies Medications ergocalciferol (VITAMIN D) 83482 UNIT Capsule 50,000 Units every 7 days 07/14/2017 Active hydroxychloroqui ne (PLAQUENIL) 200 MG Tablet Take by mouth. 05/14/2018 Active omeprazole (PRILOSEC) 40 MG CAPSULE DELAYED RELEASE Take 1 Cap by mouth daily. 90 Cap 3 09/18/2018 Active Family History Medical History Relation Name Comments Hypertension Brother Cancer Father Leukemia and Me lanoma Heart Disease Mother Mitral Valve P rolapse Celiac Disease Other Niece x 3 and Nephew x 1. Hypertension Sister Other-comment Son Myasthenia Gra vis Relation Name Status Comments Brother Father Alive Mother Other Sister Son Social History Tobacco Use Types Packs/Day Years Used Date Smoking Tobacco: Never Smokeless Tobacco: Never Alcohol Use Standard Drinks/Week Comments No 0 (1 standard drink = 0.6 oz pur e alcohol) Comments No Sex and Gender Information Value Date Recorded Sex Assigned at Not on file Legal Sex Female 3:58 PM CDT Gender Identity Not on file Sexual Orientation Not on file Last Filed Vital Signs Vital Sign Reading Time Taken Comments Blood Pressure 100/62 06/17/2018 3:12 PM COMMUNITY RELATIONS DIRECTOR Pulse 70 06/17/2018 3:12 PM COMMUNITY RELATIONS DIRECTOR Temperature 37.1 C (98.7 F) 11/07/2017 2:52 PM CDT Respiratory Rate 20 06/17/2018 3:12 PM COMMUNITY RELATIONS DIRECTOR Oxygen Saturation 99% 06/17/2018 3:12 PM COMMUNITY RELATIONS DIRECTOR Inhaled Oxygen Concentration - - Weight 45.5 kg (100 lb 6.4 oz) 06/17/2018 3:12 P M COMMUNITY RELATIONS DIRECTOR Height 152.4 cm (5') 06/17/2018 3:12 PM COMMUNITY RELATIONS DIRECTOR Body Mass Index 19.61 06/17/2018 3:12 PM COMMUNITY RELATIONS DIRECTOR Plan of Treatment Health Maintenance Due Date Last Done Comments Hepatitis C Virus (HCV) Screening 1975 TdaP Immunization 1975 SARS-COV-2 Immunization (#1) 1980 Hepatitis B Immunization (1 of 3 - 19+ 3-dose series) 1994 Cologuard 2020 Immunochemical Fecal Occult Blood 2020 Colonoscopy 07/17/2023 07/17/2018 Colorectal Cancer Screening 07/17/2023 Influenza Immunization (#1) 2025 Respiratory Syncytial Virus (RSV) Immunization (Adult) (1 - 1-dose 75+ series) 2050 Human Papillomavirus (HPV) Immunization Aged Out No longer eligible b ased on patient's age to complete this topic Meningococcal Immunization (ACWY) Aged Out No longer eligible based on patient's age to complete this topic Pneumococcal Immunization Combined Aged Out No longer eligible based on patient's age to complete this topic Rotavirus Immunization Aged Out No lo nger eligible based on patient's age to complete this topic Procedures Procedure Name Priority Date/Time Associated Diagnosis Comments COLONOSCOPY Routine 07/17/2018 from Last 3 Months or Most Recently Relevant to Health Maintenance Results * COLONOSCOPY (07/17/2018) Jeison Quiñonez DO PROCEDURE/MINOR SURGICAL ORDERA BLES Final Result from Last 3 Months or Most Recently Relevant to Health Maintenance [place] [address] [facility] Care Teams Project Manager Interior Design Relationship Specialty Start Date End Date Steven Altamirano MD [address] [place] [address] PCP - General Family Medicine 08/28/17 Jhoan Rojo MD [address] [place] [address] Hospitalist General Surgery 08/28/17 Jeison Quiñonez DO [address] [place] [address] Consulting Physician Gastroenterology 08/29/17
--- OUTSIDE RECORDS SUMMARY | 2025-02-18 10:35 | XMS_ITS | Clinical Summary ---
[facility] [place] Address [address] [place] [place] [phone] Phone Care Team Providers Care Medical Cash Poster Name Role Phone Steven Altamirano MD Primary Care Provider Allergies Active Allergy Reactions Criticality Noted Date Comments Codeine Nausea and Vomiting Low 07/17/2016 Medications traMADol-aceta minophen (ULTRACET) 37.5-325 mg tablet Take 1 Tablet by mouth every 4 hours as needed. Active azaTHIOprine (IMURAN) 50 mg tablet TAKE 1 TABLET BY MOUTH TWICE DAILY 9 Active cyanocobalamin (VITAMIN B-12) 1,000 mcg/mL Solution Inject 100 mcg by intramuscular injection. Active hydroxychloroq uine (PLAQUENIL) 200 mg tablet Take 200 mg by mouth. 9 Active naproxen (NAPROSYN) 500 mg tablet Take 500 mg by mouth. 8 Active ergocalciferol (VITAMIN D2) 50,000 unit capsule Take 50,000 Units by mouth. 8 Active chlordiazePOXI DE-clidinium (LIBRAX) 5-2.5 mg Capsule Take 1 Capsule by mouth. 8 Active famotidine (PEPCID) 40 mg tablet 9 Active OTHERIndicatio ns:juice plus Provider please include Medication name, dose, route and frequency . Active traMADol (ULTRAM) 50 mg tablet Take 1 Tablet (50 mg) by mouth every 6 hours as needed for Pain. 30 Tablet 9 Active omeprazole (PriLOSEC) 40 mg Capsule, Delayed Release(E.C.) 9 Active folic acid (FOLVITE) 1 mg tablet 9 Active denosumab (PROLIA) 60 mg/mL Syringe Inject 60 mg by subcutaneous injection. Active Active Problems Patient Care Coordination No te Formatting of this note migh t be different from the original. 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/25/201607/17 Overview (07/17/2016): bilateral Family History Medical History Relation Name Comments Healthy Brother Cancer Father Leukemia Father Lymphoma Father Other Mother Pancreatic Cancer Paternal Grandfather Dementia Paternal Grandmother Lymphoma Paternal Uncle Healthy Sister 1 Cancer Sister 2 Heart Disease Sister 2 Relation Name Status Comments Brother Alive Father Alive Mother Paternal Grandfather Paternal Grandmother Paternal Uncle Sister 1 Alive Sister 2 Alive Social History Tobacco Use Types Packs/Day Years Used Date Smoking Tobacco: Never Smokeless Tobacco: Never Tobacco Cessation:Counseling Given: No Alcohol Use Standard Drinks/Week Comments Yes 0 (1 standard drink = 0.6 oz pur e alcohol) rarely Comments No Sex and Gender Information Value Date Recorded Sex Assigned at Not on file Legal Sex Female 9:30 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 Gender Identity Not on file Sexual Orientation Not on file Last Filed Vital Signs Vital Sign Reading Time Taken Comments Blood Pressure 109/84 12/25/2018 11:25 AM CDT Pulse 72 12/25/2018 11:25 AM CDT Temperature 36.9 C (98.4 F) 03/04/2017 11:42 AM CDT Respiratory Rate 16 03/04/2017 11:42 AM CDT Oxygen Saturation 98% 12/25/2018 11:25 AM CDT Inhaled Oxygen Concentration - - Weight 50.4 kg (111 lb 1.6 oz) 12/25/2018 11:25 AM CDT Height 160 cm (5' 3) 12/25/2018 11:25 AM CDT Body Mass Index 19.68 12/25/2018 11:25 AM CDT Plan of Treatment Health Maintenance Due Date Last Done Comments DTAP/TDAP/TD VACCINES (1 - Tdap) 1994 HEPATITIS B VACCINES (1 of 3 - 19+ 3-dose series) 04/27 HPV/Cotest (21-29) 1996 CERVICAL CANCER SCREENING 2005 HPV/Cotest (30-65) 2005 PAP SMEAR 2005 COLORECTAL SCREENING 2020 Colorectal Cancer Screening 2020 FIT-DNA Q 3 years 2020 FIT/FOBT Q 1 year 2020 Flex Sig/CT Colonography Q 5 years 2020 INFLUENZA VACCINE (#1) 2024 2018 Insurance BCBS BLUE ACCESS/TRUE BLUE PPO Care Teams Medical Cash Poster Relationship Specialty Start Date End Date Steven Altamirano MD [address] [place] [address] PCP - General Family Practice 07/17/16
--- OUTSIDE RECORDS SUMMARY | 2025-02-18 10:35 | XMS_ITS | Clinical Summary ---
Author Organization [facility] Address [address] [place] [address] Care Team Providers Care Millroom Supervisor Name Role Phone Steven Altamirano MD Primary Care Provider Yanet Chávez MD Unavailable [phone] Ayah Clarke NP Unavailable [phone] Allergies Active Allergy Reactions Criticality Noted Date Comments Codeine Nausea And Vomiting 10/09/2016 Percocet can be tolerated Medications azaTHIOprine (IMURAN) 50 mg tablet Take 50 mg by mouth. 8 Active chlordiazePOXIDE -clidinium (LIBRAX) 5-2.5 mg per capsule 9 Active ergocalciferol (VITAMIN D) 50,000 unit capsule 50,000 Units every 7 days 8 Active HYDROcodone-acet aminophen (NORCO) 10-325 mg per tabletIndication s:Pain 0 8 Active hydroxychloroqui ne (PLAQUENIL) 200 mg tablet Take by mouth. 8 Active traMADol (ULTRAM) 50 mg tablet Take 50 mg by mouth every 6 hours. 9 Active nutritional supplements liquid Take by mouth. Activ e methotrexate sodium 2.5 mg tablets,dose pack TAKE 5 TABLETS BY MOUTH ONCE A WEEK 9 Active denosumab (PROLIA) 60 mg/mL syringe Inject 60 mg under the skin every 6 (six) months Active omeprazole (PriLOSEC) 40 mg capsule 9 Active folic acid (FOLVITE) 1 mg tablet 9 Active naproxen (NAPROSYN) 500 mg tablet Take 500 mg by mouth 2 times daily as needed 8 Active zoledronic acid 4 mg/5 mL injection Active vancomycin 10 gram recon soln Acti ve cefepime (MAXIPIME) 1 gram injection Inject 1 g into the muscle as instructed every 12 (twelve) hours Active gabapentin (NEURONTIN) 300 mg capsule Take 300 mg by mouth 3 (three) times a day 0 Active lisinopriL (PRINIVIL,ZESTRI L) 2.5 mg tablet Take 2.5 mg by mouth daily 0 Active rizatriptan (MAXALT) 10 mg tablet 0 Active RITUXIMAB-ABBS IVPB IN 100 ML Activ e Active Problems Problem Noted Date Diagnosed Date At high risk for breast cancer 06/08/2019 Osteoporosis with current pa thological fracture with delayed healing 01/23/2019 Assessment & Plan (01/23/2019 8:03 PM CDT): # Osteoporosis with Fragility Fractures -Etiology in setting of BRCA gene carrier status-post prophylactic zmyn-szlynzohdeasdeje-hfkiyawyrort, hysterectomy, bilateral mastectomy -No hormonal replacement therapy in context of associated cancer risk -Counseled on diet and lifestyle changes Calcium (1,200 mg/day) & Vit D3 (800 IU/day) supplementation Exercise (moderate-intensity) 30 min x 3 days/week Non-smoker -Pharmacological therapy indications: History of low-trauma fragility fracture Osteoporosis on DEXA T-score <=-2.5 (DXA) at the femoral neck -PO bisphosphonates not recommended in context of reported malabsorption; no other contraindications -Patient did receive single dose of SQ Denosumab (Prolia, anti-RANKL mAb) a few months prior from Strategic Communications Manager -Recommendations: -IV Zolendronate (Reclast) 5 mg over [...] for underlying pathology besides low bone mass Systemic lupus erythematosus 08/10/2011 Joint pain 08/10/2011 Fatigue 06/15/2011 Surgical History Surgery Date Site/Laterality Comments MASTECTOMY 05/27/2016 - 05/26/2017 Bilateral KNEE ARTHROSCOPY 05/27/1993 - 05/26/1994 Bilateral CHOLECYSTECTOMY 05/27/2017 - 05/26/2018 HYSTERECTOMY 05/27/2017 - 05/26/2018 Medical History Medical History Date Comments Asthma Lupus 2002 Breast cancer (HCC) Malabsorption Peptic ulcer disease Lupus Osteoporosis Arthritis BRCA1 gene mutation positive Family History Medical History Relation Name Comments Leukemia Father Lymphoma Father's Brother Lymphoma Father's Sister Breast cancer Maternal Grandmother Heart disease Mother Osteoporosis Mother Leukemia Paternal Grandfather Prostate cancer Paternal Grandfather Breast cancer Sister Heart disease Sister Relation Name Status Comments Father Father's Brother Father's Sister Maternal Grandmother Mother Paternal Grandfather Sister Social History Tobacco Use Types Packs/Day Years Used Date Smoking Tobacco: Never Smokeless Tobacco: Never Alcohol Use Standard Drinks/Week Comments Yes 0 (1 standard drink = 0.6 oz pur e alcohol) 1 A WEEK Personal Safety Answer Date Recorded Getting School Help Needed Not on file 07/22 Comments No Sex and Gender Information Value Date Recorded Sex Assigned at Not on file Legal Sex Female 1:22 AM 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 Gender Identity Not on file Sexual Orientation Not on file Obstetrics History Last Filed Vital Signs Vital Sign Reading Time Taken Comments Blood Pressure 121/77 05/14/2019 10:33 AM SQUADRON WORKER Pulse 72 05/14/2019 10:33 AM SQUADRON WORKER Temperature 36.7 C (98.1 F) 03/30/2019 2:20 PM SQUADRON WORKER Respiratory Rate - - Oxygen Saturation - - Inhaled Oxygen Concentration - - Weight 53.1 kg (117 lb) 07/28/2019 11:43 AM SQUADRON WORKER Height 158.8 cm (5' 2.5) 07/28/2019 11:43 AM CS T Body Mass Index 21.06 07/28/2019 11:43 AM SQUADRON WORKER Plan of Treatment Health Maintenance Due Date Last Done Comments Breast Cancer Screening-Mammogram 1975 Colon Cancer Screening-Colonoscopy 1975 Depression Screening 1975 DTaP/Tdap/Td Vaccine (1 - Tdap) 1986 Hepatitis B Screening 1993 Regular Well Visit/Exam 18-64 1993 Pneumococcal vaccine <65 (1 of 2 - PCV) 1994 Zoster Vaccine (1 of 2) 1994 Influenza Vaccine (#1) 2025 03/13/2019, 2017 Hepatitis C Screening Completed 12/19/2018 Medical Devices Implanted Type Area Section Crews Activities Clerk Device Identifier Shelf Expiration Date Model / Serial / Lot Breast Implants Breast Procedures Procedure Name Priority Date/Time Associated Diagnosis Comments HEPATITIS PANEL, ACUTE Routine 12/19/2018 11:34 AM CDT Gait instability from Last 3 Months or Most Recently Relevant to Health Maintenance Results * Hepatitis panel, acute (12/19/2018 11:34 AM CDT) Hep A IgM Nonreactive Nonreactive [facility] Comment: Interpretive Data If test is reported as GRAYZONE, new sample should be drawn in two weeks for testing. Current interpretive data was last revised on 2016. Hep B core IgM Nonreactive Nonreactive [facility] Comment: Interpretive Data If test is reported as GRAYZONE, new sample should be drawn for testing. Current interpretive data was last revised on 2016. Hep C Ab Nonreactive Nonreactive [facility] Comment: Interpretive Data Positive results should be confirmed by a molecular method. If positive, a second separately collected sample should be submitted for Hepatitis C Virus (HCV) RNA Detection and Quantitation by Real-Time Reverse Verify Rep-PCR (RT-PCR). Current interpretive data was last revised on 2016. HepBsAg Nonreactive Nonreactive [facility] Blood specimen (specimen) 12/19/2018 11:34 AM CDT 12/19/2018 11:57 AM CDT us Moreno Alves MD LAB MICROBIOLOGY - GENERA L ORDERABLES Edited Result - Final [facility] Department [place] [address] from Last 3 Months or Most Recently Relevant to Health Maintenance Insurance ANTHEM TRADITIONAL ANTHEM ACCESS ACCESS OOS Care Teams Millroom Supervisor Relationship Specialty Start Date End Date Steven Altamirano MD PCP - General 09/20/16 Yanet Chávez MD [address] [place] [address] Referring Physician Ophthalmology 03/18/18 Ayah Clarke NP [address] [place] [address] Referring Physician Family Medicine 05/13/19
--- OUTSIDE RECORDS SUMMARY | 2025-02-18 10:35 | XMS_ITS | Encounter Summary ---
Author Organization [facility] Address [facility] [place] [address] Care Team Providers Care Disability Coordinator Name Role Phone Steven Altamirano MD Primary Care Provider [phone] Maria M Reed RN Unavailable [phone] Don Petersen MD Unavailable [phone] Anuj Acuña MD Unavailable [phone] Reason for Visit * Reason Onset Date Comments Establish Care 12/16/2024 Encounter Details Date Type Department Care Team (Late st Contact Info) Description 12/16/2024 Telephone [facility] - CABLEWAY OPERATOR [address] [facility] [address] [place] [address] Tiago Sagastume MD [address] [facility] [address] [place] [address] Establish Care Social History Tobacco Use Types Packs/Day Years [...] Date Recorded Patient Health Questionnaire-2 Score 0 10/28/2024 Hunger Vital Sign Answer Date Recorded Within [...] on file Legal Sex Female 6:29 AM PROFESSOR OF 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 Patient scheduled with: Dr. Kelly Provider referring the patient: Dr. Petersen Reason/diagnosis for referral: Bilateral ovarian cysts/elevated CA-125 Spoke with patient on: 12/16/2024 Patient agrees to appointment on: 12/28/2024 Patient is aware of location, date and time. * Telephone Encounter - Lizzette Duque - 12/16/2024 2:05 PM CDT ATTENTION STAFF TAKING THE INITIAL CALL: Please follow the workflow below for all NEW [facility] patient calls. [place] the patient. If they are not in system, it is MANDATORY that you register them completely including insurance. Gather and document all the information listed below from the caller Referring provider: Don Marquez Diagnosis: Bilateral ovarian cysts, Elevated CA-125, Elevated CEA Requesting appointment with : personal development mentor at referring provider's office: Who should be contacted for scheduling (ie self, family member, guardian, etc.): Best contact number for scheduling: ()-- Ask for records to be faxed to [phone] that same day. If the referring provider is an [facility] provider and their records are already viewable in [facility], do NOT ask for them to be faxed. Inform the caller you are forwarding this information to the [facility] New Patient Intake Coordinatorfor review and someone from the team will be reaching out within one business day of the records being received to help schedule the appointment. If the patient or referring provider asks to speak with someone in the office at the time of the call, first finish gathering and documenting the above required information, tell the caller if no oneanswers they can leave a message and their call should be returned within one business day, and then transfer the call to [phone]. Forward this encounter to the [facility] NEW PATIENTS pool ([id number]). ATTENTION [facility] NEW PATIENT CHILD SUPPORT CASE OFFICER or CABLEWAY OPERATOR OFFICE STAFF SCHEDULING THE NEW PATIENT APPOINTMENT: Please follow the workflow below for all NEW [facility] patient scheduling. Reach out to the designated personal care aide listed above at the number provided. Assist in scheduling a NEW patient appointment within 10 days. Gather and document all the information listed below: Date referral was received: // How referral was received: Date contacted for scheduling: // Scheduled with Appointment date: / Appointment time: : Appointment location: Records location: If the patient reports a medical issue that needs to be triaged by an RN (i.e. bleeding, pain, etc.), this encounter should be marked high priority and forwarded to the [facility] pool player after scheduling the NEW appointment and an RN will contact the patient. documented in this encounter Plan of Treatment Not on file documented as of this encounter Visit Diagnoses Not on filedocumented in this encounter Care Teams Disability Coordinator Relationship Specialty Start Date End Date Steven Altamirano MD [address] [place] [address] PCP - General Family Medicine 08/02/16 Maria M Reed, RN Milk Truck Driver 10/11/16 Don Petersen MD [address] [place] [phone] Home And Family Living Professor Obstetrics and Gynecology 10/17/21 Anuj Acuña MD [address] [facility] [address] [place] [id number] Home And Family Living Professor Urogynecology 10/17/21 documented as of this encounter
--- OUTSIDE RECORDS SUMMARY | 2025-02-18 10:35 | XMS_ITS | Encounter Summary ---
Author Organization [facility] Address [address] [place] [address] Care Team Providers Care Boiler Operator Name Role Phone Steven Altamirano MD Primary Care Provider Yanet Chávez MD Unavailable Ayah Clarke TOOL ROOM SUPERVISOR Unavailable Encounter Details Date Type Department Care Team (Late st Contact Info) Description 06/21/2020 Telephone [facility] [address] [facility] [place] [address] Nataly Saucedo MD [address] [facility] [address] [place] [address] Social History Tobacco Use Types Packs/Day Years Used Date Smoking Tobacco: Never Smokeless Tobacco: Never Alcohol Use Standard Drinks/Week Comments Yes 0 (1 standard drink = 0.6 oz pur e alcohol) 1 A WEEK Comments No Sex and Gender Information Value Date Recorded Sex Assigned at Not on file Legal Sex Female 1:22 AM GARAGE 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
--- OUTSIDE RECORDS SUMMARY | 2025-02-18 10:35 | XMS_ITS | Clinical Summary ---
Author Organization [facility] Address [address] [place] [address] Phone Care Team Providers Care Lusterer Name Role Phone Unavailable Primary Care Provider Unavailabl e Active Problems Problem Noted Date Diagnosed Date Hydronephrosis 04/08/2017 Systemic lupus erythematosus 04/08/2017 Family History Medical History Relation Comments Heart disease Mother Kidney disease Neg Hx Relation Status Comments Mother Social History Tobacco Use Types Packs/Day Years Used Date Smoking Tobacco: Never Alcohol Use Standard Drinks/Week Comments Yes 0 (1 standard drink = 0.6 oz pur e alcohol) Alcoholic Drinks/day: rare Comments Unknown Sex and Gender Information Value Date Recorded Sex Assigned at Not on file Legal Sex Female 7:20 AM MST Gender Identity Not on file Sexual Orientation Not on file Last Filed Vital Signs Vital Sign Reading Time Taken Comments Blood Pressure 124/70 04/08/2017 12:01 AM GORE STITCHER Pulse 72 04/08/2017 12:01 AM GORE STITCHER Temperature 37.7 C (99.8 F) 04/08/2017 12:01 AM GORE STITCHER Respiratory Rate - - Oxygen Saturation - - Inhaled Oxygen Concentration - - Weight 53.1 kg (117 lb) 04/08/2017 12:01 AM GORE STITCHER Height 160 cm (5' 3) 04/08/2017 12:01 AM GORE STITCHER Body Mass Index 20.73 04/08/2017 12:01 AM GORE STITCHER Plan of Treatment Not on file
== END 2025-02-18 09:47 | disposition home or self-care (01) ==
PROVIDERS: PCP Family Medicine; Visit Provider Nurse Practitioner Adult Health
DX: C50.911 Malignant neoplasm of unspecified site of right female breast (principal); Z85.3 Personal history of malignant neoplasm of breast; R97.1 Elevated cancer antigen 125 [CA 125]
CPT/HCPCS: 77049; A9577; C8908

== ENCOUNTER 2025-03-24 14:11 | Outpatient (CLI) | payer BC, MEDICARE, SELFPAY ==
--- OUTSIDE RECORDS SUMMARY | 2025-03-24 13:30 | XMS_ITS | Encounter Summary ---
Author Organization [facility] Address [address] [place] [address] Care Team Providers Care Coating Mixer Name Role Phone Steven Altamirano MD Primary Care Provider [phone] Reason for Referral * Radiology Services (Routine) - Closed Specialty Diagnoses / Procedures Referred By Contac t Referred To Contact Diagnoses Osteoporosis, unspecified osteoporosis type, unspecified pathological fracture presence Procedures XR DEXA BONE DENSITY AXIAL 1 OR MORE SITES Cliff Haddad MD [address] [address] Phone: tel: fax: [facility] [address] [address] Phone: tel: fax: Referral ID Status Reason Start Date Expiration Date V isits Requested Visits Authorized [id number] Closed [facility] CTS 03/24/2025 04/24/2026 1 1 Reason for Visit * Reason Comments Establish Care Elevated labs Encounter Details Date Type Department Care Team (Late st Contact Info) Description 03/24/2025 1:30 PM CDT Office Visit [facility] ([facility] Oncology and Hematology - [place] [address] [facility] [address] [place] [address] Cliff Haddad MD [address] [facility] [address] [place] [address] Ovarian cyst, bilateral (Primary Dx); Osteoporosis, unspecified osteoporosis type, unspecified pathological fracture presence; Mass of left breast, unspecified quadrant Social History Tobacco Use Types Packs/Day Years Used Date Smoking Tobacco: Never Smokeless Tobacco: Never Tobacco Cessation:Counseling Given: Not Answered Alcohol Use Standard Drinks/Week Comments Yes 0 (1 standard drink = 0.6 oz pur e alcohol) rarely Comments No Sex and Gender Information Value Date Recorded Sex Assigned at Not on file Legal Sex Female 9:30 AM FISHER CRAB Gender Identity Not on file Sexual Orientation Not on file documented as of this encounter Last Filed Vital Signs Vital Sign Reading Time Taken Comments Blood Pressure 131/86 03/24/2025 1:21 PM CDT Pulse 67 03/24/2025 1:21 PM CDT Temperature 37.5 C (99.5 F) 03/24/2025 1:21 PM CDT Respiratory Rate - - Oxygen Saturation 96% 03/24/2025 1:21 PM CDT Inhaled Oxygen Concentration - - Weight 51.7 kg (114 lb) 03/24/2025 1:21 PM CDT Height 160 cm (5' 3) 03/24/2025 1:21 PM CDT Body Mass Index 20.19 03/24/2025 1:21 PM CDT documented in this encounter Progress Notes * Cliff Haddad MD - 03/24/2025 2:05 PM CDT Hematology-oncology consult Note Requesting Physician Primary Care Physician Steven Altamirano MD Problem list Patient Active Problem List Diagnosis Code Lupus [id number] Breast pain N64.4 Leukopenia D72.819 Lytic bone lesions on xray M89.8X9 Previous TREATMENT ? Measurable Disease ? Reason for Visit Madelin Patel is a 49 y.o. female who was referred for consultation for elevated tumor marker. History of present illness This is a 49-year-old pleasant female with history of leukopenia fibrocystic breast disease and lupus. Patient had bilateral mastectomy done in 2016 due to family history of breast cancer. Patient had subsequent bilateral breast implant done. 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 Further workup done previously showed no evidence of leukemia and lymphoma. Patient recently had left-sided oophorectomy and right ovarian cyst excision done on January 05, 2025. Prior to that she had labs done in November 2024 that showed elevated CA125 of 42.7. She denies any new lungworms and lymphadenopathy. Her weight and appetite are stable. No other new complaints. 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 [DISCONTINUED] omeprazole (PriLOSEC) 40 mg Capsule, Delayed Release(E.C.) [DISCONTINUED] folic acid (FOLVITE) 1 mg tablet [DISCONTINUED] denosumab (PROLIA) 60 mg/mL Syringe Inject 60 mg by subcutaneous injection. [DISCONTINUED] traMADol (ULTRAM) 50 mg tablet Take 1 Tablet (50 mg) by mouth every 6 hours as needed for Pain. 30 Tablet 0 OTHER Provider please include Medication name, dose, route and frequency . [DISCONTINUED] azaTHIOprine (IMURAN) 50 mg tablet TAKE 1 TABLET BY MOUTH TWICE DAILY [DISCONTINUED] cyanocobalamin (VITAMIN B-12) 1,000 mcg/mL Solution Inject 100 mcg by intramuscular injection. [DISCONTINUED] naproxen (NAPROSYN) 500 mg tablet Take 500 mg by mouth. [DISCONTINUED] ergocalciferol (VITAMIN D2) 50,000 unit capsule Take 50,000 Units by mouth. [DISCONTINUED] chlordiazePOXIDE-clidinium (LIBRAX) 5-2.5 mg Capsule Take 1 Capsule by mouth. [DISCONTINUED] famotidine (PEPCID) 40 mg tablet [DISCONTINUED] traMADol-acetaminophen (ULTRACET) 37.5-325 mg tablet Take 1 Tablet by mouth every 4 hours as needed. No current facility-administered medications for this visit. Allergies Allergies Allergen Reactions Codeine Nausea and Vomiting Immunizations: There is no immunization history on file for this patient. Family History Family History Problem Relation Name Age of Onset Leukemia Father 67 Lymphoma Father 67 Cancer Father Pancreatic Cancer Paternal Grandfather 65 Dementia Paternal Grandmother Lymphoma Paternal Uncle Other Mother Healthy Sister Healthy Brother Cancer Sister Heart Disease Sister Social History Social History Tobacco Use Smoking status: Never Smokeless tobacco: Never Substance Use Topics Alcohol use: Yes Comment: rarely Review of Systems Constitutional: Patient did not mention fever; no night sweats; no anorexia; no weight loss; no fatique NEENT: Patient did not mention headache; no change in vision; no change in hearing; no sore throat;no dysphagia Respiratory: Patient did not mention shortness of breath; no pleuritic chest pain; no cough; no hemoptysis Cardiac: Patient did not mention cardiac-like chest pain; no palpitations; no orthopnea; no PND; noDOE Breasts: Patient did not mention tenderness; no masses GI: Patient did not mention abdominal pain; no nausea; no vomiting; no diarrhea; no hematochezia; no melena : Patient did not mention dysuria; no frequency; no hesitancy; no hematuria SKIDDER OPERATOR: Musculosketetal: Patient did not mention bone pain; no arthralgia; no joint swelling; no myalgia; Skin: Patient did not mention pruritis; no rash; no petechiae; no ecchymoses Endocrine: Patient did not mention polydipsia; no polyuria; no unusual weight gain Neuro: Patient did not mention headache; no change in vision; no sensory changes; no muscle weakness; no confusion; no seizures Psych: Patient did not mention anxiety; no depression; Physical Exam Vitals: As per nursing note Constitutional: Well developed, well nourished, no acute distress, non-toxic appearance Teeth and gum. No signs of infection or swelling. Eyes: PERRL, conjunctiva normal HEENT: Atraumatic, external ears normal, nose normal, oropharynx moist, no pharyngeal exudates. no sinus tenderness Neck- normal range of motion, no tenderness, supple Respiratory: No respiratory distress, normal breath sounds, no rales, no wheezing Breasts: Symmetric, No masses, No nipple discharge. Cardiovascular: Normal rate, normal rhythm, no murmurs, no gallops, no rubs GI: Soft, nondistended, normal bowel sounds, nontender, no splenomegaly, no hepatomegaly, no mass, no rebound, no guarding : No costovertebral angle tenderness Musculoskeletal: No edema, no tenderness, no deformities. Back- no tenderness Integument: Well hydrated, no rash, Digits and nails inspection normal Lymphatic: No lymphadenopathy noted Neurologic: Alert & oriented x 3, CN 2-12 normal, normal motor function, normal sensory function, no focal deficits noted Psychiatric: Speech and behavior appropriate Bilateral breast examination showed bilateral breast reconstructive surgery with implants. There yusef small nodularity in the left upper outer quadrant of the breast likely the breast marker. No lymphadenopathy. labs No results found for this or any previous visit (from the past 24 hours). Labs from December 15, 2024 showed CA125 of 42.7 CEA 4.1 WBC 4.9 hemoglobin 13.5 platelet 195,000. Pathology ? Imaging & Other Studies Performance Status? Assessment / Plan: ? Elevated CA125. Patient is a 49-year-old female with history of fibrocystic breast disease and family history of breast cancer. Patient underwent bilateral mastectomy in 2017 and then bilateral breast implant. She was recently found to have bilateral ovarian cyst and had left-sided oophorectomy andright ovarian cyst excision done that showed corpus luteum and cystic follicle in the left nephrectomy specimen and corpus luteum in the right chest excision. Her CA125 was elevated secondary to the ovarian cyst. There is no evidence of malignancy. I will repeat her CA125 along with CRP, sedimentation rate, CBC and CMP today. Patient has a history of bilateral total fibrocystic disease of the breast. On my examination there is a small nodularity in the left breast upper outer quadrant likely just a breast marker. I will check CA 15-3 as well today. Follow-up with me in 2 weeks. Osteoporosis. Will order the bone density. She will continue vitamin D. Based on the bone density we will start Prolia injections. Autoimmune leukopenia. Resolved. Lupus. She will follow-up with the biofuels production manager. Patient is on Plaquenil. Thank you very much for allowing me to participate in Madelin Patel's evaluation and management. Please feel free to contact if I can be of any further assistance in your patient???s care requiring hematology or oncology evaluation. Sincerely, ? ? Cliff Haddad M.D. cell TOBACCO COUNSELING She is not a tobacco/nicotine user. Cliff Haddad MD ,03/24/2025 2:05 PM ? Total time spent 60 minutes, two third of the total time spent counseling patient [id number]. CC:? documented in this encounter Plan of Treatment Upcoming Encounters Date Type Department Care Team (Late st Contact Info) Description 04/05/2025 4:30 PM FISHER CRAB Telephone Check Up [facility] ([facility] Oncology and Hematology - [place] [address] [facility] [address] [place] [address] Cliff Haddad MD [address] [facility] [address] [place] [id number] Scheduled Orders Name Type Priority Associated Diagnoses Orde r Schedule CBC WITH DIFFERENTIAL Lab Stat Ovarian cyst, bilateral Expected: 03/24/2025, Expires: 03/24/2026 COMPREHENSIVE METABOLIC PANEL Lab Stat Ovarian cyst, bilateral Expected: 03/24/2025, Expires: 03/24/2026 C-REACTIVE PROTEIN Lab Routine Ovarian cyst, bilateral Expected: 03/24/2025, Expires: 03/24/2026 SEDIMENTATION RATE Lab Routine Ovarian cyst, bilateral Expected: 03/24/2025, Expires: 03/24/2026 CANCER ANTIGEN 125 Lab Routine Ovarian cyst, bilateral Expected: 03/24/2025, Expires: 03/24/2026 XR DEXA BONE DENSITY AXIAL 1 OR MORE SITES Imaging Routine Osteoporosis, unspecified osteoporosis type, unspecified pathological fracture presence 1 Occurrences starting 03/24/2025 until 03/24/2026 CANCER ANTIGEN 15-3 Lab Routine Mass of left breast, unspecified quadrant Expected: 03/24/2025, Expires: 03/24/2026 documented as of this encounter Visit Diagnoses Diagnosis Ovarian cyst, bilateral- Primary Other and unspecified ovarian cyst Osteoporosis, unspecified osteoporosis type, unspecified pathological fracture presence Mass of left breast, unspecified quadrant documented in this encounter Care Teams Coating Mixer Relationship Specialty Start Date End Date Steven Altamirano MD [address] [place] [address] PCP - General Family Practice 07/17/16 documented as of this encounter
[2025-03-24 14:38] LABS: Hematocrit 40.2 % (37.0-47.0); Hemoglobin 13.4 g/dL (12.0-15.0); Immature Granulocyte Percent A 0.2 % (0-0.5); Lymphocytes Absolute Auto 1.34 K/mm3 (0.9-3.2); Mean Corpuscular HGB Conc 33.3 g/dl (32-36); Mean Corpuscular Hemoglobin 30.0 pg (26-34); Mean Corpuscular Volume 89.9 fl (80-100); Nucleated Red Blood Cells Absolute Auto 0.000 K/mm3 (0.0-0.012); Nucleated Red Blood Cells Perc 0.0 % (0.0-0.2); Platelet Count Result 225 k/mm3 (150-375); Red Blood Count 4.47 M/mm3 (4.2-5.4); White Blood Count 5.6 K/mm3 (4.5-10.0)
--- OUTSIDE RECORDS SUMMARY | 2025-03-24 16:02 | XMS_ITS | Encounter Summary ---
Author Organization [facility] Address [facility] [place] [address] Care Team Providers Care Fisherman Helper Name Role Phone Steven Altamirano MD Primary Care Provider [phone] Maria M Reed RN Unavailable [phone] Don Petersen MD Unavailable [phone] Anuj Acuña MD Unavailable [phone] Reason for Visit * Reason Onset Date Comments Surgery Scheduling 12/30/2024 Encounter Details Date Type Department Care Team (Late st Contact Info) Description 12/30/2024 Telephone [facility] FISH BAIT PICKER [address] [facility] [address] [place] [address] Jeremy Kelly MD [address] [facility] [address] [place], [place] [id number] Surgery Scheduling Social History Tobacco Use Types [...] on file Legal Sex Female 6:29 AM DEDICATED REGIONAL DRIVER Gender Identity Not on file Sexual Orientation [...] patient to schedule surgery. Per patient, her Hospitality Specialist does no longer work at the office [...] ? Please note: All times are estimates. [facility] will contact the patient with finalized times no later than one day prior to the scheduled procedure. Surgery Location: [facility]. [address] [place] [address]. [place] [address] In-Person Follow-Up Appointment: Saturday, January 18, 2025 Arrival Time: 10:45 a.m. Appointment Time: 11:00 a.m. Location: [address] [place] [address], [address]. [place] [address] (4th Floor) documented in this encounter Plan of Treatment Not on file documented as of this encounter Visit Diagnoses Not on filedocumented in this encounter Care Teams Fisherman Helper Relationship Specialty Start Date End Date Steven Altamirano MD [address] [place] [address] PCP - General Family Medicine 08/02/16 Maria M Reed RN Corn Cutter 10/11/16 Don Petersen MD [address] [place] [address] Pet Trainer Obstetrics and Gynecology 10/17/21 Anuj Acuña MD [address] [facility] [address] [place] [address] Pet Trainer Urogynecology 10/17/21 documented as of this encounter
--- OUTSIDE RECORDS SUMMARY | 2025-03-24 16:02 | XMS_ITS | Encounter Summary ---
Author Organization [facility] Address [address] [place] [address] Care Team Providers Care Assistant Curator Name Role Phone Steven Altamirano MD Primary Care Provider Yanet Chávez MD Unavailable Ayah Clarke FRENCH BINDING FOLDER Unavailable Encounter Details Date Type Department Care Team (Late st Contact Info) Description 06/21/2020 Telephone [facility] Rad[facility] [address] [facility] [place] [address] Nataly Saucedo MD [address] [facility] 200 [place] [address] Social History Tobacco Use Types Packs/Day Years Used Date Smoking Tobacco: Never Smokeless Tobacco: Never Alcohol Use Standard Drinks/Week Comments Yes 0 (1 standard drink = 0.6 oz pur e alcohol) 1 A WEEK Comments No Sex and Gender Information Value Date Recorded Sex Assigned at Not on file Legal Sex Female 1:22 AM TRANSPLANT NURSE Gender Identity Not on file Sexual Orientation Not on file documented as of this encounter Plan of Treatment Not on file documented as of this encounter Visit Diagnoses Not on filedocumented in this encounter Care Teams Assistant Curator Relationship Specialty Start Date End Date Steven Altamirano MD PCP - General 09/20/16 Yanet Chávez MD [address] [place] [address] Referring Physician Ophthalmology 03/18/18 Ayah Clarke NP [address] [place] [address] Referring Physician Family Medicine 05/13/19 documented as of this encounter
--- OUTSIDE RECORDS SUMMARY | 2025-03-24 16:02 | XMS_ITS | Clinical Summary ---
Author Organization [facility] Address [address] [place] [address] Phone Care Team Providers Care Quill Stripper Name Role Phone Steven Altamirano MD Primary Care Provider [phone] Allergies Active Allergy Reactions Criticality Noted Date Comments Codeine Nausea and Vomiting Low 07/17/2016 Medications hydroxychloroq uine (PLAQUENIL) 200 mg tablet Take 200 mg by mouth. 08/12/19 Active OTHERIndicatio ns:juice plus Provider please include Medication name, dose, route and frequency . Active traMADol-aceta minophen (ULTRACET) 37.5-325 mg tablet Take 1 Tablet by mouth every 4 hours as needed. Discontinu ed(Alterna te therapy prescribed ) azaTHIOprine (IMURAN) 50 mg tablet TAKE 1 TABLET BY MOUTH TWICE DAILY 08/09/19 19 Discontinu ed(Alterna te therapy prescribed ) cyanocobalamin (VITAMIN B-12) 1,000 mcg/mL Solution Inject 100 mcg by intramuscular injection. Discontinu ed(Alterna te therapy prescribed ) naproxen (NAPROSYN) 500 mg tablet Take 500 mg by mouth. 10/20/19 18 Discontinu ed(Alterna te therapy prescribed ) ergocalciferol (VITAMIN D2) 50,000 unit capsule Take 50,000 Units by mouth. 07/14/19 18 Discontinu ed(Alterna te therapy prescribed ) chlordiazePOXI DE-clidinium (LIBRAX) 5-2.5 mg Capsule Take 1 Capsule by mouth. 03/19/20 18 Discontinu ed(Alterna te therapy prescribed ) famotidine (PEPCID) 40 mg tablet 07/17/19 19 Discontinu ed(Alterna te therapy prescribed ) traMADol (ULTRAM) 50 mg tablet Take 1 Tablet (50 mg) by mouth every 6 hours as needed for Pain. 30 Tablet 09/02/19 19 Discontinu ed(Alterna te therapy prescribed ) omeprazole (PriLOSEC) 40 mg Capsule, Delayed Release(E.C.) 10/18/19 19 Discontinu ed(Alterna te therapy prescribed ) folic acid (FOLVITE) 1 mg tablet 11/05/19 Discontinu ed(Alterna te therapy prescribed ) denosumab (PROLIA) 60 mg/mL Syringe Inject 60 mg by subcutaneous injection. Discontinu ed(Alterna te therapy prescribed ) Active Problems Patient Care Coordination No te Formatting of this note migh t be different from the original. Primary Care: Steven Altamirano MD Referring Provider: Steven Altamirano MD [address] [place] [address] Other: Problem Noted Date Diagnosed Date Lytic bone lesions on xray 08/19/2018 Leukopenia 02/08/2017 Breast pain 07/17/2016 Lupus 05/27/2011 Resolved Problems Problem Noted Date Diagnosed Date Resolved Date Duct ectasia of breast 06/25/201607/17 Overview (07/17/2016): bilateral Encounters Date Type Department Care Team Description 03/24/2025 1:30 PM CDT Office Visit [facility] Oncology and Hematology - [place] [address] [place] [address] Cliff Haddad MD Ovarian cyst, bilateral (Primary Dx); Osteoporosis, unspecified osteoporosis type, unspecified pathological fracture presence; Mass of left breast, unspecified quadrant from Last 3 Months Family History Medical History Relation Name Comments [...] on file Legal Sex Female 9:30 AM BAG INSPECTOR Gender Identity Not on file Sexual Orientation Not on file Last Filed Vital Signs Vital Sign Reading Time Taken Comments Blood Pressure 131/86 03/24/2025 1:21 PM CDT Pulse 67 03/24/2025 1:21 PM CDT Temperature 37.5 C (99.5 F) 03/24/2025 1:21 PM CDT Respiratory Rate 16 03/04/2017 11:42 AM CDT Oxygen Saturation 96% 03/24/2025 1:21 PM CDT Inhaled Oxygen Concentration - - Weight 51.7 kg (114 lb) 03/24/2025 1:21 PM CDT Height 160 cm (5' 3) 03/24/2025 1:21 PM CDT Body Mass Index 20.19 03/24/2025 1:21 PM CDT Plan of Treatment Upcoming Encounters Date Type Department Care Team (Late st Contact Info) Description 04/05/2025 4:30 PM BAG INSPECTOR Telephone Check Up [facility] Oncology and Hematology - [place] [address] [facility] [address] [place] [address] Cliff Haddad MD [address] [facility] [address] [place] [address] Health Maintenance Due Date Last Done Comments DTAP/TDAP/TD VACCINES (1 - Tdap) 1994 HEPATITIS B VACCINES (1 of 3 - 19+ 3-dose series) 1994 Traditional Medicare (ACO) A nnual Wellness Visit 1994 HPV/Cotest (21-29) 1996 CERVICAL CANCER SCREENING 2005 HPV/Cotest (30-65) 2005 PAP SMEAR 2005 FIT-DNA Q 3 years 2020 FIT/FOBT Q 1 year 2020 Flex Sig/CT Colonography Q 5 years 2020 INFLUENZA VACCINE (#1) 2024 03/13/2019, 2017 COLORECTAL SCREENING 07/17/2028 07/17/2018 Colorectal Cancer Screening 07/17/2028 Insurance [employer] BLUE ACCESS/TRUE BLUE PPO [employer]OOSEBS BLUE ACCESS/TRUE BLUE PPO MEDICARE PART A AND B Care Teams Quill Stripper Relationship Specialty Start Date End Date Steven Altamirano MD [address] [place] [address] PCP - General Family Practice 07/17/16
--- OUTSIDE RECORDS SUMMARY | 2025-03-24 16:02 | XMS_ITS | Clinical Summary ---
Author Organization [facility] Address [address] [place] [address] Care Team Providers Care Skid [address] Man Name Role Phone Steven Altamirano MD Primary Care Provider Yanet Chávez MD Unavailable Ayah Clarke NP Unavailable [phone] Allergies Active Allergy Reactions Criticality Noted Date [...] setting of BRCA gene carrier status-post prophylactic ezjk-wpmtuxskpyxtuled-mmywtnkxhrbt, hysterectomy, bilateral mastectomy -No hormonal replacement therapy [...] anti-RANKL mAb) a few months prior from Community Outreach Director -Recommendations: -IV Zolendronate (Reclast) 5 mg over [...] on file Legal Sex Female 1:22 AM FLOCCULATOR OPERATOR Gender Identity Not on file Sexual Orientation Not on file Obstetrics History Last Filed Vital Signs Vital Sign Reading Time Taken Comments Blood Pressure 121/77 05/14/2019 10:33 AM FLOCCULATOR OPERATOR Pulse 72 05/14/2019 10:33 AM FLOCCULATOR OPERATOR Temperature 36.7 C (98.1 F) 03/30/2019 2:20 PM FLOCCULATOR OPERATOR Respiratory Rate - - Oxygen Saturation - - Inhaled Oxygen Concentration - - Weight 53.1 kg (117 lb) 07/28/2019 11:43 AM FLOCCULATOR OPERATOR Height 158.8 cm (5' 2.5) 07/28/2019 11:43 AM CS T Body Mass Index 21.06 07/28/2019 11:43 AM FLOCCULATOR OPERATOR Plan of Treatment Health Maintenance Due Date [...] Completed 12/19/2018 Medical Devices Implanted Type Area Toe Former Stitchdowns Device Identifier Shelf Expiration Date Model / Serial / Lot Breast Implants Breast Procedures Procedure Name Priority Date/Time Associated Diagnosis Comments HEPATITIS PANEL, ACUTE Routine 12/19/2018 11:34 AM CDT Gait instability from Last 3 Months or Most Recently Relevant to Health Maintenance Results * Hepatitis panel, acute (12/19/2018 11:34 AM CDT) Hep A IgM Nonreactive Nonreactive [facility] Comment: Interpretive Data If test is reported as GRAYZONE, new sample should be drawn in two weeks for testing. Current interpretive data was last revised on 2016. Hep B core IgM Nonreactive Nonreactive [facility] Comment: Interpretive Data If test is reported as GRAYZONE, new sample should be drawn for testing. Current interpretive data was last revised on 2016. Hep C Ab Nonreactive Nonreactive [facility] Comment: Interpretive Data Positive results should be confirmed by a molecular method. If positive, a second separately collected sample should be submitted for Hepatitis C Virus (HCV) RNA Detection and Quantitation by Real-Time Reverse Visual Design Lead-PCR (RT-PCR). Current interpretive data was last revised on 2016. HepBsAg Nonreactive Nonreactive [facility] Blood specimen (specimen) 12/19/2018 11:34 AM CDT 12/19/2018 11:57 AM CDT us Moreno Alvse MD LAB MICROBIOLOGY - GENERA L ORDERABLES Edited Result - Final [facility] Department [place] [address] from Last 3 Months or Most Recently Relevant to Health Maintenance Insurance ANTHEM TRADITIONAL ANTHEM ACCESS ACCESS OOS Care Teams Skid [address] Man Relationship Specialty Start Date End Date Steven Altamirano MD PCP - General 09/20/16 Yanet Chávez MD [address] [place] [id number] Referring Physician Ophthalmology 03/18/18 Ayah Clarke NP [address] [place] [address] Referring Physician Family Medicine 05/13/19
--- OUTSIDE RECORDS SUMMARY | 2025-03-24 16:02 | XMS_ITS | Clinical Summary ---
Author Organization [facility] Address [address] [place] [id number] Phone Care Team Providers Care General Manager Land Department Name Role Phone Unavailable Primary Care Provider [...] Comments Blood Pressure 124/70 04/08/2017 12:01 AM REMARKETING MANAGER Pulse 72 04/08/2017 12:01 AM REMARKETING MANAGER Temperature 37.7 C (99.8 F) 04/08/2017 12:01 AM REMARKETING MANAGER Respiratory Rate - - Oxygen Saturation - - Inhaled Oxygen Concentration - - Weight 53.1 kg (117 lb) 04/08/2017 12:01 AM REMARKETING MANAGER Height 160 cm (5' 3) 04/08/2017 12:01 AM REMARKETING MANAGER Body Mass Index 20.73 04/08/2017 12:01 AM REMARKETING MANAGER Plan of Treatment Not on file
--- OUTSIDE RECORDS SUMMARY | 2025-03-24 16:02 | XMS_ITS | Encounter Summary ---
Author Organization [facility] Address [facility] [facility] [place] [address] Care Team Providers Care Marine Drafter Name Role Phone Steven Altamirano MD Primary Care Provider [phone] Maria M Reed RN Unavailable [phone] Don Petersen MD Unavailable [phone] Anuj Acuña MD Unavailable [phone] Reason for Visit * Reason Onset Date Comments Establish Care 12/16/2024 Encounter Details Date Type Department Care Team (Late st Contact Info) Description 12/16/2024 Telephone [facility] - SATELLITE COMMUNICATIONS OPERATOR [address] [facility] [address] [place] [address] Tiago Sagastume MD [address] [facility] [address] [place] [address] Establish Care Social History Tobacco [...] on file Legal Sex Female 6:29 AM PARENT PARTNER Gender Identity Not on file Sexual Orientation [...] follow the workflow below for all NEW [employer] patient calls. Imm[employer] the patient. If they are not in system, it is MANDATORY that you register them completely including insurance. Gather and document all the information listed below from the caller Referring provider: Don Marquez Diagnosis: Bilateral ovarian cysts, Elevated CA-125, Elevated CEA Requesting appointment with : ground crew lines person at referring provider's office: Who should be contacted for scheduling (ie self, family member, guardian, etc.): Best contact number for scheduling: ()-- Ask for records to be faxed to [phone] that same day. If the referring provider is an [facility] provider and their records are already viewable in [employer], do NOT ask for them to be faxed. Inform the caller you are forwarding this information to the [employer] New Patient Intake Coordinatorfor review and someone [...] day, and then transfer the call to [phone]. Forward this encounter to the [facility] [employer] [facility] NEW PATIENTS pool ([id number]). ATTENTION [employer] NEW PATIENT DOSIMETRIST or SATELLITE COMMUNICATIONS OPERATOR OFFICE STAFF SCHEDULING THE NEW PATIENT APPOINTMENT: Please follow the workflow below for all NEW [employer] patient scheduling. Reach out to the designated customer contact specialist listed above at the number provided. Assist [...] marked high priority and forwarded to the [employer] excavating machine operator after scheduling the NEW appointment and an RN will contact the patient. documented in this encounter Plan of Treatment Not on file documented as of this encounter Visit Diagnoses Not on filedocumented in this encounter Care Teams Marine Drafter Relationship Specialty Start Date End Date Steven Altamirano MD [address] [place] [address] PCP - General Family Medicine 08/02/16 Maria M Reed, RN Mercury Recoverer 10/11/16 Don Petersen MD [address] [place] [phone] Digital Content Specialist Obstetrics and Gynecology 10/17/21 Anuj Acuañ MD [address] [facility] [address] [place] [id number] Digital Content Specialist Urogynecology 10/17/21 documented as of this encounter
--- OUTSIDE RECORDS SUMMARY | 2025-03-24 16:02 | XMS_ITS | Clinical Summary ---
Author Organization [facility] Address [address] [place] [address] Care Team Providers Care Podiatrist Orthopedic Name Role Phone Steven Altamirano MD Primary Care Provider [phone] Maria M Reed RN Unavailable [phone] Don Petersen MD Unavailable [phone] Anuj Acuña MD Unavailable [phone] Source Comments [facility],non-owned Affiliates and Associated Physician Practices is amultiple site organization consisting of ambulatory clinics and hospital sitesin [place], [place], [place] and [place]. This disclosure is being madepursuant to the Care Everywhere program and may not contain all information available regarding this patient. Last updated 18.[facility] Allergies Active Allergy Reactions Criticality Noted Date [...] setting of BRCA gene carrier status-post prophylactic bfvd-uiovmuulsheyyebr-mwplekgfqrzn, hysterectomy, bilateral mastectomy -No hormonal replacement therapy [...] anti-RANKL mAb) a few months prior from [employer] -Recommendations: -IV Zolendronate (Reclast) 5 mg over [...] setting of BRCA gene carrier status-post prophylactic zuvz-aramjojgvbekcjgz-ocfrrmyearsq, hysterectomy, bilateral mastectomy -No hormonal replacement therapy [...] anti-RANKL mAb) a few months prior from [employer] -Recommendations: -IV Zolendronate (Reclast) 5 mg over [...] of breast 11/16/2016 Overview (11/16/2016): Diagnosed at [facility]. Initial biopsies by Dr Howard with subsequent definitive treatment and reconstruction at [facility]. Clinical trial participant 10/16/2016 Overview (11/11/2016): S/p 10/10/2016 bilateral nipple sparing simple mastectomy with immediate reconstruction with prepectoral implants (Jonathan/Asher): all benign. No PASH seen. [facility] outside review of prior slides also did not see/interpret as PASH. Participating in [place] [employer] nipple sparing registry [...] with prepectoral implants (Jonathan/Asher): benign Participating in [place] [employer] of breast surgeons nipple sparing registry [...] noted on ultrasound of the left breast, [facility]. BI-RADS category 3. Due left US [...] did not see/interpret as PASH. Participating in [place] [employer] nipple sparing registry study. Encounters Date Type Department Care Team Description 01/18/2025 11:00 AM CDT Office Visit [facility] [address] [place] [phone] Jeremy Kelly MD Bilateral ovarian cysts (Primary Dx); Family history of breast cancer 01/18/2025 Travel 01/05/2025 11:31 AM CDT - 01/05/2025 2:38 PM CDT Surgery [facility] [address] [place] [address] Jeremy Kelly MD LAPAROSCOPIC LEFT OOPHORECTOMY, RIGHT OVARIAN CYSTECTOMY 01/05/2025 11:07 AM CDT Anesthesia Event [facility] [address] [place] [address] Mukesh Jon MD Bauer, Jennifer M, APRN-CHRISTIANO 01/05/2025 9:26 AM CDT - 01/05/2025 5:09 PM CDT Hospital Encounter [facility] [address] [place] [address] Jeremy Kelly MD Surgery General Discharge Disposition: Home or Self Care 01/05/2025 Travel 12/31/2024 Travel 12/30/2024 Telephone [facility] [address] [place] [address] Jeremy Kelly MD Surgery Scheduling 12/28/2024 1:00 PM CDT Office Visit [facility] - [facility] [address] [place] [address] Jeremy Kelly MD Bilateral ovarian cysts (Primary Dx); Elevated CA-125; Elevated CEA; Visit for pelvic exam 12/28/2024 Travel from Last 3 Months Immunizations Immunization Administration [...] on file 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 Gender Identity Not on file Sexual Orientation [...] TESTING 1975 MEDICARE AWV 12 MONTHS 1975 COVID-19 VACCINE (#1) 1980 HIV SCREENING 1990 HEPATITIS C SCREENING 05/18/1993 DTAP/TDAP/TD VACCINES (1 - Tdap) 1994 HEPATITIS B VACCINE (1 of 3 - 19+ 3-dose series) 1994 MAMMOGRAM 09/01/2020 09/01/2018, 06/25/2016, 05/02/2016 INFLUENZA VACCINE (#1) 01/25/202503/13/ 9, 2018 ZOSTER VACCINE (1 of 2) [...] this topic Medical Devices Implanted Type Area Computer Console Operator Device Identifier Shelf Expiration Date Model / Serial / Lot Alloderm Select Tissue Matrix Rtu Implanted:Qty: 1 on 10/10/2016 by Alfredo Sterling MD at [facility] Left: Breast [id number] 07/25/2018 [id number] / / [id number] Alloderm Select Tissue Matrix Rtu Implanted:Qty: 1 on 10/10/2016 by Alfredo Sterling MD at [facility] Right: Breast [id number] 07/25/2018 [id number] / / [id number] Allergan Natrelle 410 Highly Cohesive Anatomically Shaped Silicone Filled Breast Implant Biocell Full Height Moderate Projection Implanted:Qty: 1 on 10/10/2016 by Alfredo Sterling MD at [facility] Left: Breast 03/21/2019 -[id number] / [id number] / Allergan Natrelle 410 Highly Cohesive Anatomically Shaped Silicone Filled Breast Implant Biocell Full Height Moderate Projection Implanted:Qty: 1 on 10/10/2016 by Alfredo Sterling MD at [facility] Right: Breast 10/26/2019 [id number] / [id number] / Impl Brst 13.5x14cm 440ml Sty Fm Hi Chsv - [id number] Implanted:Qty: 1 on 12/07/2016 by Alfredo Sterling MD at [facility] Left: Breast [employer] 03/21/2019 -[id number] / [id number] / Alloderm Select Tissue Matrix Rtu Implanted:Qty: 1 on 12/07/2016 by Alfredo Sterling MD at [facility] Left: Breast 09/24/2018 [id number] / / [id number] Alloderm Tissue Matrix Rtu Implanted:Qty: 1 on 04/01/2017 by Alfredo Sterling MD at [facility] Left: Breast Lifecell Alvino [id number] 09/24/2018 [id number] / / [id number] Impl Brst 13.5x14cm 440ml Sty Fm Hi Chsv - [id number] Implanted:Qty: 1 on 04/01/2017 by Alfredo Sterling MD at [facility] Left: Breast [employer] 03/21/2019 -[id number] / [id number] / Description:prep solution: s casi mixed with Bacitracin, Ancef, Gentamycin Saline Lot # [id number] exp 12/26/2019 Ancef 1g lot # [id number] exp 01/25/2019 Gentamycin 80mg lot #[id number] exp 04/26/2018 Bacitracin 26355 units lot#[id number] 04/26/2019 Impl Brst Natrelle Inspira Mdrt Prfl - [id number] Implanted:Qty: 1 on 02/23/2019 by Alfredo Sterling MD at [facility] Right: Breast [employer] 12/25/2022 [place] [address] / [id number] / Mtrx Tissue [id number] Aldrm Slct Duo Xthck Implanted:Qty: 1 on 02/23/2019 by Alfredo Sterling MD at [facility] Left: Breast Lifecell Alvino 11/24/2020 [id number] / / [id number] Mtrx Tissue [id number] Aldrm Slct Duo Xthck Implanted:Qty: 1 on 02/23/2019 by Alfredo Sterling MD at [facility] Right: Breast Lifecell Alvino 11/24/2020 [id number] / / [id number] Mtrx Tissue [id number] Aldrm Slct Duo Implanted:Qty: 1 on 04/10/2019 by Alfredo Sterling MD at [facility] Left: Breast Lifecell Alvino 01/25/2021 [id number] / / [id number] Mtrx Tissue [id number] Aldrm Slct Duo Implanted:Qty: 1 on 02/15/2020 by Alfredo Sterling MD at [facility] Left: Breast Lifecell Alvino 09/24/2021 [id number] / / [id number] Impl Brst Natrelle Inspira Mdrt Prfl 445 - [id number] Implanted:Qty: 1 on 02/15/2020 by Alfredo Sterling MD at [facility] Left: Breast [employer] 01/15/2024 [place] [address] / [id number] / Stent Venovo 16mm 80mm Vns Radopq Gw Implanted:Qty: 1 on 03/01/2020 by Navjot Loya MD at [facility] 07/24/2021 [id number] / / [id number] Impl Brst Natrelle Inspira Mdrt Prfl 445 - [id number] Implanted:Qty: 1 on 06/24/2020 by Alfredo Sterling MD at [facility] Left: Breast [employer] 04/16/2023 [place] [address] / [id number] / [id number] Sys Ureth Supp Obtryx Midurethral Trnstr Implanted:Qty: 1 on 12/27/2021 by Anuj Acuña MD at [facility] [employer] Scimed 10/24/2024 [id number] / / [id number] Explanted Type Area Computer Console Operator Device Identifier Shelf Expiration Date Model / Serial / Lot Impl Brst Natrelle Inspira Mdrt Prfl - [id number] Implanted:Qty: 1 on 02/23/2019 by Alfredo Sterling MD at [facility] Explanted:Qty: 1 on 03/12/2019 by Alfredo Sterling MD at [facility] Left: Breast [employer] 12/25/2022 [place] [address] / [id number] / Impl Brst Natrelle Inspira Mdrt Prfl 445 - [id number] Implanted:Qty: 1 on 04/10/2019 by Alfredo Sterling MD at [facility] Explanted:Qty: 1 on 02/15/2020 by Alfredo Sterling MD at [facility] Left: Breast [employer] 10/31/2023 [place] [address] / [id number] / Procedures Procedure Name Priority Date/Time Associated Diagnosis Comments LAB RESULTS ORDER 01/18/2025 CARDIAC RHYTHM STRIP ORDER 01/07/2025 7:46 PM CDT PATHOLOGY TISSUE EXAM (STL) Routine 01/05/2025 12:06 PM CDT Diagnosis unknown CYTOLOGY NON-CHIEF MEDICAL DIRECTOR PANEL (STL) Routine 01/05/2025 11:58 AM CDT Diagnosis unknown ENDOTRACHEAL TUBE NOTE Routine 01/05/2025 11:20 AM CDT WV LAP,RMV ADNEXAL STRUCTURE 01/05/2025 10:57 AM CDT Diagnosis unknown TYPE + SCREEN PANEL STAT 01/05/2025 1 0:29 AM CDT BASIC METABOLIC PANEL (CALCIUM TOTAL) STAT 01/05/2025 10:29 AM CDT Preop testing CBC W AUTO DIFFERENTIAL STAT 01/05/2025 10:29 AM CDT Pelvic pain in female MAMMOGRAPHY ORDER Routine 09/01/2018 PAP IG LB+HPV HR RFLX 16,18 Routine 11/16/2016 11:09 AM CDT Encounter for gynecological examination (general) (routine) with abnormal findings from Last 3 Months or Most Recently Relevant to Health Maintenance Results * LAB RESULTS ORDER (01/18/2025) 01/18/2025 Narrative 01/18/2025 Ordered by an unspecified provider. us Scanned Document LAB - THERAPEUTIC DRUG MONITORI NG ORDERABLES Final Result * CARDIAC RHYTHM STRIP ORDER (01/07/2025 7:46 PM CDT) Narrative 01/07/2025 7:46 PM CDT Ordered by an unspecified provider. us Scanned Document CARDIAC SERVICES ORDERABLES Fin al Result * PATHOLOGY TISSUE EXAM (STL) (01/05/2025 12:06 PM CDT) Case Report Surgical Pathology Report Case: [id number] Authorizing Provider: Jeremy Kelly MD Collected: 01/05/2025 12:06 PM Ordering Location: [facility] Received: 01/05/2025 12:11 PM Pathologist: Kelly Rodgers MD Specimens: A) - Ovary, left ovary B) - Ovarian Cyst, right ovarian cyst 01/06/2025 8:31 AM CDT [facility] Final Diagnosis Ovary, left, oophorectomy (A, including FSA1) - Corpus luteum - Cystic follicle Ovary, right, cyst, excision (B, including FSB1) - Corpus luteum 01/06/2025 8:31 AM [facility] at 0831 CDT Clinical History The patient is a 49-year-old woman with ovarian cysts. Operative procedure: left oophorectomy, right ovarian cyst excision. 01/06/2025 8:31 AM [facility] Frozen Section The frozen section [...] [address] Rodgers. 01/06/2025 8:31 AM [facility] Gross Description The specimens are [...] surface and sectioning shows normal ovarian parenchyma. Order Processor sections submitted as follows: A1-frozen section control of FSA1, A2-presumed corpus luteum, A3-A4- ovary, A5-A6-cyst Received fresh for frozen, specimen B, right ovarian cyst is an aggregate of pink-mckeon tissues, 2.5 x 2.0 x 0.3 cm. Entirely submitted for frozen and resubmitted for permanent in cassette B1 (FS B1). LJ 01/06/2025 8:31 AM [facility] Microscopic Description Microscopic examination substantiates the above diagnosis. Permanent sections confirm the frozen section diagnosis. 01/06/2025 8:31 AM CDT [facility] Pathologist Location at [facility] 01/06/2025 8:31 AM CDT [facility] Disclaimer All histochemical and/or immunohistochemical results are interpreted with controls that demonstrate appropriate staining reactions before reporting results. Note on use of immunocytochemistry reagents: This test was developed and its performance characteristic determined by [facility], Department of Laboratory Medicine. It has [...] be interpreted with caution. 01/06/2025 8:31 AM CDT [facility] Embedded Images 01/06/2025 8:31 AM CDT [facility] Pathology/Cytology ENTIRE OVARY / Unknown 01/05/2025 12:06 PM CDT 01/05/2025 12:11 PM CDT Comment:Pre-op diagnosis: Diagnosis unknown [R69] Miscellaneous samples (specimen) OVARIAN CYST SPECIMEN / Unknown 01/05/2025 12:17 PM CDT 01/05/2025 12:24 PM CDT Comment:Pre-op diagnosis: Diagnosis unknown [R69] Jeremy Kelly MD LAB - PATHOLOGY/CYTOLOGY ORDER BERTO Final Result [facility] [address] [place], [place] [id number] * CYTOLOGY NON-CHIEF MEDICAL DIRECTOR PANEL (STL) (01/05/2025 11:58 AM CDT) Case Report Cytology Non Studio Director Report Case: [id number] Authorizing Provider: Jeremy Kelly MD Collected: 01/05/2025 11:58 AM Ordering Location: [facility] Received: 01/05/2025 01:45 PM Pathologist: Austin Granados MD Specimen: Pelvic Washings, pelvic washings 01/06/2025 10:20 AM [facility] Final Diagnosis Pelvic washing: - [place] to reactive-appearing mesothelium - No carcinoma identified 01/06/2025 10:20 AM [facility] at 1020 CDT Clinical History Per operative note, ovarian cysts. 01/06/2025 10:20 AM [facility] Gross Description 40 mL of clear fluid is received. A Pap-stained ThinPrep slide and H&E-stained cell block sections are produced. GRW 01/06/2025 10:20 AM [facility] Microscopic Description In a Pap-stained ThinPrep slide as well as H&E-stained cell block sections, there is mesothelium, most present as thin sheets in the ThinPrep slide. No large cohesive aggregates of malignant-appearing epithelium are identified. 01/06/2025 10:20 AM [facility] Pathologist Location at [facility] 01/06/2025 10:20 AM [facility] Disclaimer All histochemical and/or immunohistochemical results are interpreted with controls that demonstrate appropriate staining reactions before reporting results. Note on use of immunocytochemistry reagents: This test was developed and its performance characteristic determined by [facility], Department of Laboratory Medicine. It has [...] be interpreted with caution. 01/06/2025 10:20 AM [facility] Embedded Images 01/06/2025 10:20 AM [facility] Pathology/Cytolo gy SPECIMEN OBTAINED BY PERITONEAL LAVAGE / Unknown 01/05/2025 11:58 AM CDT 01/05/2025 1:45 PM CDT Comment:Pre-op diagnosis: Diagnosis unknown [R69] Jeremy Kelly MD LAB - PATHOLOGY/CYTOLOGY ORDER BERTO Final Result [facility] [address] [place], [place] [id number] * ETT LINE PERFORMABLE (01/05/2025 11:20 AM CDT) Narrative Kelly Marin, MAYDA - 01/05/2025 11:20 AM CDT Kelly Marin APRN-CRNA 01/05/2025 11:20 AM Endotracheal Tube Placement: Patient Location: OR. Procedure: intubation (82108) Procedure Section: Sedation: under general anesthesia. Indications [...] No. Staff Section Anesthesia Provider: Kelly Marin, MAYDA, Performed the procedure Additional Comments: PATIENT INTUBATED WITH EASE, ATRAUMATIC. + BBS. +ECO2. DENTITION UNCHANGED. BILATERAL EYES TAPED WITH EYEGUARD PRIOR TO INTUBATION.. Mukesh Jon MD GENERAL ANESTHESIA ORDERABLE S Final Result * TYPE + SCREEN PANEL (01/05/2025 10:29 AM CDT) ABO Rh B POS 01/05/2025 11:19 AM CDT [facility] Comment:History checked. Antibody Screen NEG 11:19 AM CDT [facility] Blood Bank BLOOD SPECIMEN / Unknown Venipuncture / Unknown 01/05/2025 10:29 AM CDT 01/05/2025 10:32 AM CDT Jeremy Kelly MD LAB - BLOOD BANK ORDERABLES Fi nal Result [facility] [address] [phone] * CBC W AUTO DIFFERENTIAL (01/05/2025 10:29 AM CDT) WBC 4.9 4.0 - 10.7 x10E9/L 01/05/2025 10:52 AM CDT [facility] RBC Count 4.47 3.90 - 5.20 x10E12/L 01/05/2025 10:52 AM CDT [facility] Hemoglobin 13.5 11.9 - 15.8 g/dL 01/05/2025 10:52 AM CDT [facility] Hematocrit 39.3 34.8 - 46.1 % 01/05/2025 10:52 AM CDT [facility] MCV 87.9 80.0 - 98.0 fL 01/05/2025 10:52 AM CDT [facility] MCH 30.2 26.7 - 33.6 pg 01/05/2025 10:52 AM CDT [facility] MCHC 34.4 31.7 - 36.3 g/dL 01/05/2025 10:52 AM CDT [facility] RDW-CV 12.4 11.3 - 14.8 % 01/05/2025 10:52 AM CDT [facility] Platelet Count 195 150 - 420 x10E9/L 01/05/2025 10:52 AM CDT [facility] MPV 10.7 7.8 - 11.4 fL 01/05/2025 10:52 AM CDT [facility] Neutrophil % 63.8 41.0 - 74.0 % 01/05/2025 10:52 AM CDT [facility] Lymphocyte % 27.3 17.0 - 47.0 % 01/05/2025 10:52 AM CDT [facility] Monocyte % 7.5 3.0 - 11.0 % 01/05/2025 10:52 AM CDT [facility] Eosinophil % 0.6 0.0 - 7.0 % 01/05/2025 10:52 AM CDT [facility] Basophil % 0.4 0.0 - 1.6 % 01/05/2025 10:52 AM CDT [facility] Immature Granulocytes % 0.4 0.0 - 1.0 % 01/05/2025 10:52 AM CDT [facility] Neutrophil Absolute 3.15 1.60 - 7.50 x10E9/L 01/05/2025 10:52 AM CDT [facility] Lymphocyte Absolute 1.35 1.00 - 4.40 x10E9/L 01/05/2025 10:52 AM CDT [facility] Monocyte Absolute 0.37 0.15 - 1.00 x10E9/L 01/05/2025 10:52 AM CDT [facility] Eosinophil Absolute 0.03 0.00 - 0.60 x10E9/L 01/05/2025 10:52 AM CDT [facility] Basophil Absolute 0.02 0.00 - 0.13 x10E9/L 01/05/2025 10:52 AM CDT [facility] Blood BLOOD SPECIMEN / Unknown Venipuncture / Unknown 01/05/2025 10:29 AM CDT 01/05/2025 10:40 AM CDT us Jeremy Kelly MD LAB - HEMATOLOGY ORDERABLES Fi nal Result [facility] [address] [place] [address] * (ABNORMAL) BASIC METABOLIC PANEL (CALCIUM TOTAL) (01/05/2025 10:29 AM CDT) Glucose 85 70 - 99 mg/dL 01/05/2025 11:04 AM CDT [facility] Sodium 137 136 - 145 mmol/L 01/05/2025 11:04 AM CDT [facility] Potassium 4.2 3.5 - 5.1 mmol/L 01/05/2025 11:04 AM CDT [facility] Chloride 108(H) 98 - 107 mmol/L 01/05/2025 11:04 AM CDT [facility] CO2 19(L) 22 - 29 mmol/L 01/05/2025 11:04 AM CDT [facility] Calcium 9.3 8.4 - 10.4 mg/dL 01/05/2025 11:04 AM [facility] Anion Gap 10 6 - 16 mmol/L 01/05/2025 11:04 AM CDT [facility] BUN 24(H) 5.3 - 18.7 mg/dL 01/05/2025 11:04 AM CDT [facility] Creatinine 0.73 0.57 - 1.11 mg/dL 01/05/2025 11:04 AM CDT [facility] eGFR by CKD-EPI >90 >=90 mL/min/1.7 3 m2 01/05/2025 11:04 AM CDT [facility] Comment:Estimated Glomerular Filtration Rate (eGFR) calculated using the CKD-EPI Creatinine Equation (2020), per the National Kidney Foundation and [place] [employer] recommendations. Blood BLOOD SPECIMEN / Unknown Venipuncture / Unknown 01/05/2025 10:29 AM CDT 01/05/2025 10:40 AM CDT Juan Parkinson MD LAB - CHEMISTRY ORDERABLES Final Result Performing Organization Address City/State/[facility] Co de Phone Number [facility] [address] [place] [address] * MAMMOGRAPHY ORDER (09/01/2018) Anatomical Region Laterality Modality Mammography us Scanned Document MAMMO ORDERABLES Final Result * [...] Performed by [facility] INSURANCE BILL Comment:Tiffany daley, Oven Dumper (ASCP) Comment . [facility] INSURANCE BILL Pathologist [...] CYTYC Thin Prep Vial Resulting Agency Comment [address] [phone] Don Petersen MD LAB - PATHOLOGY/CYTOLOGY ALLEGRA COBB Final Result [facility] INSURANCE BILL [address] [place] [address] from Last 3 Months or Most Recently Relevant to Health [place] [address] [employer] MEDICARE MEDICARE Advance Directives * Full Code (Latest [...] 2:24 PM 2018 7:36 PM Care Teams Podiatrist Orthopedic Relationship Specialty Start Date End Date Steven Altamirano MD [address] [place] [address] PCP - General Family Medicine 08/02/16 Maria M Reed, RN Gate Tender 10/11/16 Don Petersen MD [address] [phone] Group Fitness Instructor Obstetrics and Gynecology 10/17/21 Anuj Acuña MD [address] [place] [phone] Group Fitness Instructor Urogynecology 10/17/21
--- OUTSIDE RECORDS SUMMARY | 2025-03-24 16:02 | XMS_ITS | Clinical Summary ---
Author Organization [facility] Address [address], [address] [address] Phone Care Team Providers Care Direct Marketing Representative Name Role Phone Steven Altamirano MD Primary Care Provider [phone] Jhoan Rojo MD Unavailable [phone] Jeison Quiñonez DO Unavailable [phone] Allergies No known active allergies Medications ergocalciferol (VITAMIN D) 01796 UNIT Capsule 50,000 Units every 7 days [...] Comments Blood Pressure 100/62 06/17/2018 3:12 PM MILL MANAGER Pulse 70 06/17/2018 3:12 PM MILL MANAGER Temperature 37.1 C (98.7 F) 11/07/2017 2:52 PM CDT Respiratory Rate 20 06/17/2018 3:12 PM MILL MANAGER Oxygen Saturation 99% 06/17/2018 3:12 PM MILL MANAGER Inhaled Oxygen Concentration - - Weight 45.5 kg (100 lb 6.4 oz) 06/17/2018 3:12 P M MILL MANAGER Height 152.4 cm (5') 06/17/2018 3:12 PM MILL MANAGER Body Mass Index 19.61 06/17/2018 3:12 PM MILL MANAGER Plan of Treatment Health Maintenance Due Date [...] Recently Relevant to Health [place] [address] [facility] Care Teams Direct Marketing Representative Relationship Specialty Start Date End Date Steven Altamirano MD [address] [place] [address] PCP - General Family Medicine 08/28/17 Jhoan Rojo MD [address] [place] [address] Hospitalist General Surgery 08/28/17 Jeison Quiñonez DO [address] [place] [address] Consulting Physician Gastroenterology 08/29/17
[2025-03-24 16:32] LABS: Alanine Aminotransferase 17 U/L (6-35); Albumin Level 4.0 g/dL (3.5-5.1); Alkaline Phosphatase 47 U/L (38-126); Anion Gap 4 mmol/L (4-12); Aspartate Amino Transferase 36 U/L (14-36); Bilirubin,Total 0.5 mg/dL (0.2-1.3); Blood Urea Nitrogen 22 mg/dL (7-17); CRP < 0.5 mg/dL (<1.0); Calcium 9.1 mg/dL (8.4-10.2); Carbon Dioxide 27 mmol/L (22-30); Chloride 105 mmol/L (98-107); Estimated Glomerular Filt Rate > 60; Glucose 87 mg/dL (65-110); Potassium 3.7 mmol/L (3.4-5.0); Sodium 136 mmol/L (137-145); Total Protein 6.8 g/dL (6.3-8.2)
== END 2025-03-24 14:12 | disposition home or self-care (01) ==
LOC: ANHLAB 14:13
PROVIDERS: PCP Family Medicine; Visit Provider Internal Medicine Hematology & Oncology
DX: N63.20 Unspecified lump in the left breast, unspecified quadrant (principal); C50.412 Malignant neoplasm of upper-outer quadrant of left female breast; N83.201 Unspecified ovarian cyst, right side; N83.202 Unspecified ovarian cyst, left side
CPT/HCPCS: 36415; 80053; 85025; 85652; 86140; 86300; 86304

== ENCOUNTER 2025-05-03 09:39 | Outpatient (CLI) | payer BC, MEDICARE, SELFPAY ==
--- NOTE | ~2025-05-03 | DEXA_ITS ---
Bone Density Report Name: EMMA FARAH Age: 49 Sex: Female Ethnicity: White Date of : 1975 Indication: parental hip fracture; height loss; hysterectomy; Referring Provider: Cliff Haddad Study: Bone densitometry was performed. Exam Date: May 03, 2025 Accession number: [id number] Bone Density: Region BMD T-score Z-score Classification AP Spine(L1-L4) 0.825 -2.0 -1.3 Osteopenia Femoral Neck (Left) 0.662 -1.7 -1.0 Osteopenia Total Hip (Left) 0.802 -1.2 -0.7 Osteopenia Femoral Neck (Right) 0.661 -1.7 -1.0 Osteopenia Total Hip (Right) 0.828 -0.9 -0.5 Normal Total Hip Mean 0.815 -1.1 -0.6 Osteopenia World Health Organization criteria for BMD impression classify patients as: Normal (T-score at or above -1.0), Osteopenia (T-score between -1.0 and -2.5), or Osteoporosis (T-score at or below -2.5). 10-year Fracture Risk: FRAX not reported because: Premenopausal woman Clinical Information Provided by Patient: Parent has had a hip fracture Has used the following medications: Calcium Has the following medical conditions: Hysterectomy Patient maximum height was 63 Drinks caffeinated beverages Onset of menses at age 14 Premenopausal Number of children 3 Impression: The patient's bone mass is within expected range for age, gender and ethnicity. The patient has risk factors, including: parental hip fracture. Discussion: BONE DENSITY IS WITHIN EXPECTED LIMITS FOR AGE, SEX AND RACE. Bone density is within expected limits for age, sex and race at all sites measured. The patient should follow a healthful lifestyle (good nutrition with adequate calcium and vitamin D, and appropriate weight-bearing exercise). Follow-Up: Consider repeating this study in 2 to 3 years to reassess this patient's status, or sooner if there is some new clinical indication. Reported by: JOSSELYN on 05/03/2025 10:11:00 AM. Reviewed, dictated and finalized at location A.
== END 2025-05-03 09:40 | disposition home or self-care (01) ==
LOC: MICIMG 09:40
PROVIDERS: PCP Family Medicine; Visit Provider Internal Medicine Hematology & Oncology
DX: M81.0 Age-related osteoporosis without current pathological fracture (principal); M85.88 Other specified disorders of bone density and structure, other site; M85.852 Other specified disorders of bone density and structure, left thigh; M85.851 Other specified disorders of bone density and structure, right thigh
CPT/HCPCS: 77080